=== PATIENT | male | born 1945 | race Caucasian/White ===

== ENCOUNTER 2024-11-25 08:25 | Outpatient (CLI) | payer BC, SELFPAY | END 2024-11-25 08:26 | disposition home or self-care (01) | LOC: INJ CL 08:27 | PROVIDERS: PCP Internal Medicine; Visit Provider Family Medicine | DX: M54.16 Radiculopathy, lumbar region (principal); M51.369 Other intervertebral disc degeneration, lumbar region without mention of lumbar back pain or lower extremity pain | CPT/HCPCS: 62323; J0702; Q9966 ==

== ENCOUNTER 2025-01-21 15:27 | Emergency (ER) | payer BC, SELFPAY ==
[2025-01-21] VITALS (26 sets, daily range): BP systolic 99–125; BP diastolic 60–73; PULSE 62–66; RESP 11–42; TEMP 36.1; O2SAT 90–97; BMI 28.7
--- NOTE | 2025-01-21 16:09 | ED.GENADULT ---
HPI - General Adult General Date Seen: 01/21/25 Chief complaint: Dizziness/Vertigo Stated complaint: Fall Time Seen by Provider: 01/21/25 15:31 History of Present Illness HPI narrative: 79 yo M with a complex presentation here to the ER. He was apparently brought to the ER today by ambulance after he had a episode where he got dizzy and fell at his doctor's office in [place] today. History from the patient is a little bit limited and confusing. He does have a history of Parkinson's and knows that he is due for his carbidopa/levodopa at 4:00 p.m. he does not know his dose of medication but knows that he normally takes 2 pills per dose. In his [place] medical record I see that he is on carbidopa/levodopa 25/100 mg 2 tablets 4 times daily.. He also is able to tell me that he gets episodes where he gets ?a rhodes of blood? to his head and feels like his head is going to pop off. It sounds like this is been happening fairly often for the past couple of months. He is also able to tell me that he just had a workup through Cardiology at [facility] for his are. He apparently had a CT scan, and angiogram, and echocardiogram. He may have had a leaky or a narrow valve. It sounds like his orange peel operator were talking about replacing it over a wire (TAVR? ) But then decided to manage him with medications. He knows that he takes 20 medications in the morning and 15 in the evening. He is not sure what his new meds are. He lives in [place] but it sounds like his regular doctor referred him to a orange peel operator and circular head saw operator in [place]. It sounds like he has COPD. He is able to tell me that he is normally on oxygen. Not home any L he is on. He says he was at the doctor's office and [place] today when he lost his balance and fell. He does fall occasionally, a couple of times per year. Today's episode was associated with 1 of the times when the blood rashes to his head. He says he thinks his doctors wanted him to cut down on his lisinopril blood pressure medication because it is too low. He says his doctor sent him to the ER today because they were concerned that he may have hit his head when he fell. He says he thinks he probably did not hit his head. EMS brought him here from a [facility] clinic. He was apparently holding his walker and went to sit down but missed the chair. Apparently blood pressure was low per EMS. Patient was complaining of head spinning. Past medical history according to his [facility] care link chart include Essential hypertension- amlodipine 5 mg daily, lisinopril 10 mg daily, propranolol 120 mg long-acting Paroxysmal atrial fibrillation- apixaban Chronic diastolic CHF-torsemide 20 mg q.h.s. History of PE-apixaban Left bundle branch block Aortic stenosis Rheumatic fever Mixed hyperlipidemia Hypothyroidism-levothyroxine Type 2 diabetes-pregabalin Sensorineural hearing loss Blepharospasm GERD History of duodenal ulcer Restless leg syndrome-melatonin, mirtazapine Sleep apnea BPH-finasteride Parkinson's disease-carbidopa/levodopa, [place] Depression/anxiety-venlafaxine COPD-albuterol/ipratropium, Breo Ellipta Former Smoker Asthma According to notes from his cardiology visit today, Dr Vernell Suarez is a 79 y.o. male with former smoker, with a PMH of aortic stenosis, rheumatic fever, chronic HFpEF, pAfib, LBBB, HTN, HLD, Parkinson's, COPD, chronic respiratory failure (on 2L NC at baseline), hypothyroidism. He was charged from hospital January 09, 2025 after angiogram demonstrating moderate not flow-limiting LAD disease, 80% distal LAD disease, moderate aortic valve disease with a mean gradient of 28 and a valve area of 1.31 based on cath. He was evaluated by the structural heart team. It was felt he was not having anginal symptoms. It was also felt that he had moderate aortic stenosis and did not have an indication for valve management. They recommend follow-up in a year. He was then seen in the emergency room January 12, 2025. His reported that he looked pale at the time. He has generalized weakness. It was recommend he have a stat cardiology visit. His troponins have remained flat over the last year. They range between 16 and 28. His proBNP was actually reduced on his ER visit from prior. On January 05 it was 650 then it was down to 501. ? Paroxysmal atrial fibrillation, low burden, recently changed to Eliquis. Aortic stenosis HFpEF on daily diuretic Chronic unspecified lung disease HTN Former tobacco use, < 10 year pack history, no use in 50 years ? ? History of Present Illness The patient presents for evaluation of hypotension, lightheadedness, and dyspnea. Recently seen in the ER for chest pain and dyspnea. Breathing improved with inhaler. Discharged but returned due to weakness and dyspnea. No nebulizer, no circular head saw operator consult. No chest pain during ER visit, but reported dyspnea. Currently no chest pain, pressure, or heaviness; reports lightheadedness and weakness. Dyspnea on exertion, cannot recall last comfortable breathing. No increased swelling since hospital stay. On diuretic but did not take today. On Eliquis, previously on warfarin. No aspirin, on fish oil for triglycerides. On 2 L of oxygen. Consulted Dr. Chung in [place] at 10:45 AM today, reported dizziness, lightheadedness, and falls. Lisinopril dosage reduced. Fell in lobby today due to leg weakness, no loss of consciousness. Currently lightheaded and weak. On 8 medications daily. He hit his head and is on Eliquis. Blood pressure remains subone 100 he remains lightheaded and dizzy in the office. Has Parkinson's disease, no autonomic dysfunction discussion with neurologist. Took Sinemet at 1:[address] Blancas prescribes Sinemet, considering switch due to Dr. Blancas's relocation. 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 Assessment & Plan 1. Hypotension: - Discontinue amlodipine as this likely worsens his edema he has no angina and has no cardioprotection - Reduce lisinopril dosage. - Follow-up back with Dr. Cabrera for aortic valve evaluation. - Monitor BP closely. - Continue pulmonary medications. - Recommend head CT due to recent fall and head injury while on Eliquis. - Discontinue fish oil. -Due to his worsening lightheadedness and dizziness I did speak with Dr. Chung will plan on sending the patient to the emergency room. As he continued to have symptoms I recommended that he go to the ER via ambulance. The family would like him to go to the emergency room in [facility]. Again him not sure that his hypotension has anything to do with his heart as his most recent echocardiogram does show a preserved ejection fraction. He very well may need to transfer back to [facility] if we think this is valvular in nature. Otherwise I have set him up with follow-up with Dr. Cabrera who saw him in the hospital for both his coronary artery disease and aortic stenosis. 2. Lightheadedness and dizziness: - Seek immediate medical attention if symptoms persist or worsen. 3. Dyspnea: - Continue inhaler PRN. - Follow up with circular head saw operator for COPD management. 4. 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 5. Head injury: - Recommend head CT to rule out intracranial bleeding emergently as he is on Eliquis Related Data Home Medications ?Medication ?Instructions ?Recorded ?Confirmed albuterol sulfate 2.5 mg/3 mL 2.5 mg Q4H PRN dyspnea 01/21/25 (0.083 %) solution for nebulization amantadine HCl 100 mg capsule 200 mg PO BID 01/21/25 01/21/25 amlodipine 5 mg tablet 5 mg PO DAILY 01/21/25 01/21/25 apixaban 5 mg tablet (Eliquis) 5 mg PO BID 01/21/25 01/21/25 buspirone 30 mg tablet 30 mg PO BID 01/21/25 01/21/25 carbidopa 25 mg-levodopa 100 mg tab PO 01/21/25 tablet clonazepam 0.5 mg tablet 0.25 mg PO QPM 01/21/25 01/21/25 fluticasone furoate 200 1 ea inhalation DAILY 01/21/25 01/21/25 mcg-vilanterol 25 mcg/dose inhalation powder fluticasone propionate 50 2 spray intranasal DAILY 01/21/25 01/21/25 mcg/actuation nasal spray,suspension ipratropium 0.5 mg-albuterol 3 mg 3 ml inhalation 3XD 01/21/25 01/21/25 (2.5 mg base)/3 mL nebulization soln isosorbide mononitrate 30 mg 30 mg PO DAILY 01/21/25 01/21/25 tablet,extended release 24 hr levothyroxine 100 mcg tablet 100 mcg PO DAILY 01/21/25 01/21/25 lisinopril 10 mg tablet 10 mg PO DAILY 01/21/25 01/21/25 lisinopril 20 mg tablet 20 mg PO DAILY 01/21/25 01/21/25 methocarbamol 500 mg tablet 500 mg PO Q8H PRN muscle spasm 01/21/25 01/21/25 mirtazapine 30 mg tablet 30 mg PO QPM 01/21/25 01/21/25 pregabalin 150 mg capsule 150 mg PO BID 01/21/25 01/21/25 propranolol 120 mg capsule,24 120 mg PO DAILY 01/21/25 01/21/25 hr,extended release rosuvastatin 20 mg tablet 20 mg PO QPM 01/21/25 01/21/25 tamsulosin 0.4 mg capsule 0.4 mg PO DAILY 01/21/25 01/21/25 torsemide 20 mg tablet 20 mg PO DAILY 01/21/25 01/21/25 tramadol 50 mg tablet 50 mg PO Q6H PRN pain 01/21/25 01/21/25 venlafaxine 75 mg capsule,extended 225 mg PO DAILY 01/21/25 01/21/25 release 24 hr Allergies Allergy/AdvReac Type Severity Reaction Status Date / Time aspirin Allergy Unknown Verified 01/21/25 16:35 verapamil Allergy Unknown Verified 01/21/25 16:35 PFSH PFSH Social History Smoking Status: Never smoker Do you use any of these nicotine containing products: None How often do you have a drink containing alcohol: never AUDIT-C Alcohol total score: 0 Non-prescribed substance use: denies use Exam Narrative: Exam Narrative: Constitutional: Appears well-developed and well-nourished. Alert. Conversant but somewhat poor historian. There is some much detail for him to give that he has a hard time sorting through in chronological order. He is not really able to describe the exact fall that led him to be sent to the ER today.. Non toxic. HENT: Head: Atraumatic. No depressed skull fracture, Raccoon Eyes, Vazquez's sign, or hemotympanum. Face normal. TMs normal Nose: Nose normal. Mouth/Throat: Oral mucosa is clear and moist. no trismus. Pharynx normal. Tonsils symmetric. No tonsillar enlargement, erythema, or exudate. Eyes: Conjunctivae normal. EOM normal. Pupils equal, round, and reactive to light. No scleral icterus. Neck: Normal range of motion. Neck supple. No tracheal deviation present. No definite C-spine step-off or tenderness. However, cannot be cleared by clinical criteria Cardiovascular: Normal rate, regular rhythm. No gallop. No friction rub. Systolic murmur heard. Symmetric radial artery pulses Pulmonary/Chest: Effort normal. No stridor. No respiratory distress. No wheezes. Scares bibasilar rales. No rhonchi . No tenderness. Abdominal: Soft. Bowel sounds normal. No distension. No mass. No tenderness. No rebound. No guarding. Musculoskeletal: No T or L-spine tenderness. Pelvis stable. RUE: Normal range of motion. No tenderness. No deformity LUE: Normal range of motion. No tenderness. No deformity RLE: Normal range of motion. No edema. No tenderness. No deformity LLE: Normal range of motion. No edema. No tenderness. No deformity Neurological: Alert and oriented to person, place, and time. Normal strength. CN II-VII intact. No sensory deficit. GCS eye subscore is 4. GCS verbal subscore is 5. GCS motor subscore is 6. Normal coordination . After receiving Sinemet is able to ambulate using a walker. Gait is fairly stable. Skin: Skin is warm and dry. No rash noted. No pallor. Normal capillary refill. Psychiatric: Normal mood. Normal affect. Const: Vital Signs, click to edit/add: Vital Signs - 24 hr 01/21/25 15:33 01/21/25 16:02 01/21/25 16:15 Temperature 96.9 F L Pulse Rate [Pulse Oximeter] 66 Respiratory Rate 18 25 H 18 Blood Pressure [Le ft Upper Arm] 100/68 Pulse Oximetry 93 91 93 Oxygen Delivery Me thod Nasal Cannula Oxygen Flow Rate 2 01/21/25 16:22 01/21/25 16:23 01/21/25 16:30 Temperature Pulse Rate [Pulse Oximeter] Respiratory Rate 16 19 Blood Pressure [Le ft Upper Arm] 99/62 Pulse Oximetry 91 92 Oxygen Delivery Me thod Oxygen Flow Rate 01/21/25 16:53 01/21/25 16:54 01/21/25 17:00 Temperature Pulse Rate [Pulse Oximeter] Respiratory Rate 15 15 17 Blood Pressure [Le ft Upper Arm] Pulse Oximetry 93 92 90 Oxygen Delivery Me thod Oxygen Flow Rate 01/21/25 17:07 01/21/25 17:08 01/21/25 17:15 Temperature Pulse Rate [Pulse Oximeter] 62 Respiratory Rate 16 14 18 Blood Pressure [Le ft Upper Arm] 113/73 Pulse Oximetry 94 94 Oxygen Delivery Me thod Nasal Cannula Oxygen Flow Rate 2 01/21/25 17:17 01/21/25 17:30 01/21/25 17:32 Temperature Pulse Rate [Pulse Oximeter] Respiratory Rate 19 42 H 17 Blood Pressure [Le ft Upper Arm] Pulse Oximetry 96 97 96 Oxygen Delivery Me thod Oxygen Flow Rate 01/21/25 17:45 01/21/25 18:00 01/21/25 18:02 Temperature Pulse Rate [Pulse Oximeter] Respiratory Rate 33 H 16 14 Blood Pressure [Le ft Upper Arm] Pulse Oximetry 92 92 91 Oxygen Delivery Me thod Oxygen Flow Rate 01/21/25 18:15 01/21/25 18:15 01/21/25 18:17 Temperature Pulse Rate [Pulse Oximeter] Respiratory Rate 17 15 Blood Pressure [Le ft Upper Arm] 109/65 Pulse Oximetry 92 90 Oxygen Delivery Me thod Oxygen Flow Rate 01/21/25 18:30 01/21/25 18:30 01/21/25 18:32 Temperature Pulse Rate [Pulse Oximeter] Respiratory Rate 16 17 Blood Pressure [Le ft Upper Arm] 113/68 Pulse Oximetry 94 93 Oxygen Delivery Me thod Oxygen Flow Rate 01/21/25 18:45 01/21/25 18:50 01/21/25 19:00 Temperature Pulse Rate [Pulse Oximeter] Respiratory Rate 15 17 11 L Blood Pressure [Le ft Upper Arm] Pulse Oximetry 90 90 90 Oxygen Delivery Me thod Oxygen Flow Rate 01/21/25 19:00 01/21/25 19:03 Temperature Pulse Rate [Pulse Oximeter] Respiratory Rate 18 Blood Pressure [Le ft Upper Arm] 125/60 Pulse Oximetry 90 Oxygen Delivery Me thod Oxygen Flow Rate Course Vital Signs Vital signs: Initial Vital Signs Temperature 96.9 F L 01/21/25 15:33 Temperature Source Temporal Artery Scan 01/21/25 15:33 Pulse Rate 66 01/21/25 15:33 Respiratory Rate 18 01/21/25 15:33 Blood Pressure 100/68 01/21/25 15:33 Blood Pressure Mean 78 01/21/25 15:33 Blood Pressure Position Sitting 01/21/25 15:33 Pulse Oximetry 93 01/21/25 15:33 Oxygen Delivery Method Nasal Cannula 01/21/25 15:33 Oxygen Flow Rate 2 01/21/25 15:33 Vital Signs Temperature 96.9 F L 01/21/25 15:33 Pulse Rate 66 01/21/25 15:33 Respiratory Rate 18 01/21/25 15:33 Blood Pressure 100/68 01/21/25 15:33 Pulse Oximetry 93 01/21/25 15:33 Oxygen Delivery Method Nasal Cannula 01/21/25 15:33 Oxygen Flow Rate 2 01/21/25 15:33 Temperature 96.9 F L 01/21/25 15:33 Pulse Rate 62 01/21/25 17:07 Respiratory Rate 18 01/21/25 19:03 Blood Pressure 125/60 01/21/25 19:00 Pulse Oximetry 90 01/21/25 19:03 Oxygen Delivery Method Nasal Cannula 01/21/25 17:07 Oxygen Flow Rate 2 01/21/25 17:07 Medications Administered Medications: Discontinued Medications Generic Name Dose Route Start Last Admin Trade Name Freq PRN Reason Stop Dose Admin Carbidopa/Levodopa 2 tab 01/21/25 16:12 01/21/25 17:04 Carbidopa-Levodopa 25-100 Tablet PO 01/21/25 16:13 2 tab ONCE ONE Administration Medical Decision Making MDM Narrative Medical decision making narrative: Pleasant 79-year-old gentleman with a complex presentation here to the ER. He was actually sent to the ER today by EMS because he had a fall in his Cardiology office waiting room. Initially was unclear whether not this was a syncopal event or mechanical fall but according to the orange peel operator notes it sounds like it was mechanical. They described that he was sitting back in a chair and missed the chair and fell back on the floor and hit his head. In terms of evaluation for injuries after the fall workup is reassuring. CT scan head and C-spine are normal. Chest x-ray showed no sign of broken ribs. He has no other complaints of pain such as help over shoulder or wrist pain or hip pain. No evidence for other traumatic injury or internal bleeding. When I discussed the patient's HPI he is primarily concerned because he has been having episodes where he gets blood rushing to his head or pulsing in his head that have been happening off and on for the past several weeks. It sounds like he has had fairly extensive workup with his PCP and his orange peel operator. He has actually already had coronary angiogram, echo and was found to have moderate aortic stenosis not requiring immediate TAVR and noncritical coronary artery disease for which they are not recommending any immediate stenting. Workup here in the ER shows an EKG with sinus rhythm and first-degree AV block. Troponin is normal. BNP is elevated at 22 30 but chest x-ray is clear. At this point no evidence for active CHF. He does have a white count of 14 of unclear etiology. He does not have any sign of pneumonia on chest x-ray. Urinalysis negative. No abdominal pain to suggest intra-abdominal infection. No evidence for skin infection on his clinical exam. I do not have any recent baseline labs in my system for comparison. At this point no clear evidence for infection or sepsis. He is hemodynamically stable and blood sugar pressure has been normal throughout his ER visit. He and his are eager to get home because he spent all day at various doctor visits, 1st with his PCP and then with his orange peel operator and then was sent here. Hemoglobin is reassuring at 13.9. No signs of any active bleeding. His orange peel operator and his PCP have recommended that he cut back on his blood pressure medications so I advised him to continue to make that change and follow up with his PCP for recheck. Lab Data Labs: Lab Results 01/21/25 01/21/25 Range/Units 17:12 17:40 WBC 14.71 H (4.50-11.00) K/uL RBC 4.38 (4.30-5.90) m/uL Hgb 13.9 (13.5-17.5) gm/dL Hct 42.2 (37.0-53.0) % MCV 96 (80-100) fL MCH 32 (26-34) pg MCHC 33 (32-36) gm/dL RDW Coeff of Stefani 13.0 (11.5-15.5) % Plt Count 188 (140-440) K/uL Neut % (Auto) 74.5 H (42.0-72.0) % Lymph % (Auto) 16.7 L (20-44) % [place] % (Auto) 7.8 (0.0-11.0) % Eos % (Auto) 0.5 (0.0-7.0) % Baso % (Auto) 0.2 (0.0-3.0) % Neut # (Auto) 11.00 H (1.7-7.0) K/uL Lymph # (Auto) 2.50 (0.90-2.90) K/uL [place] # (Auto) 1.10 H (0.00-0.90) K/UL Eos # (Auto) 0.10 (0.00-0.50) K/uL Baso # (Auto) 0.00 (0.00-0.30) K/uL Abs Immat Gran (auto) 0.00 (0.00-0.30) K/uL Imm/Tot Granulo (auto) 0.3 % Sodium 134 L (135-149) mmol/L Potassium 4.2 (3.6-5.1) mmol/L Chloride 96 (96-114) mmol/L Carbon Dioxide 30 (20-32) mmol/L Anion Gap 8 (7-15) mEq/L BUN 15 (7-30) mg/dL Creatinine 1.2 (0.5-1.5) mg/dL Estimated Creat Clear 52.38 Estimated GFR 62 ml/min Glucose 120 H (60-115) mg/dL Lactate 1.0 (0.5-1.9) mmol/L Calcium 8.8 (8.4-10.6) mg/dL Troponin I < 0.01 (0.01-0.04) ng/mL NT-Pro-B Natriuret Pep 2230 H (See Note) pg/mL Urine Color [place] A (Yellow) Urine Appearance Clear (Clear) Urine pH 5.5 (5.0-8.5) Ur Specific Felt >= 1.030 (1.000-1.030) Urine Protein 1+ A (Negative) Urine Glucose (UA) Negative (Negative) Urine Ketones 1+ A (Negative) Urine Blood Negative (Negative) Urine Nitrite Negative (Negative) Urine Bilirubin 1+ A (Negative) Urine Urobilinogen 0.2 (0.2-1.0) Ur Leukocyte Esterase Negative (Negative) Urine RBC 0-2 (0-2) Urine WBC 0-2 (0-5) Ur Squamous Epith Cells None (None-Few) Urine Bacteria None (None) Hyaline Casts Many A (None-Few) Imaging Data CT scan - head: Attestation: I have reviewed the pertinent imaging results. Radiologist's impression: IMPRESSION: 1. No acute intracranial hemorrhage. 2. 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 CT C spine: Attestation: I have reviewed the pertinent imaging results. Radiologist's impression: IMPRESSION: 1. No evident acute displaced fracture. 2. Degenerative change of the cervical spine. Chest x-ray: Attestation: I have reviewed the pertinent imaging results. Radiologist's impression: IMPRESSION: No acute cardiopulmonary process or acute traumatic injury. ECG Data Attestation: I personally reviewed and interpreted this ECG as follows: Interpretation: Normal sinus rhythm with first-degree AV block Rate: 62 NV: 234 QRS axis: Left axis deviation. Left bundle branch block pattern. ST segment/T wave: No ST segment elevation or depression. QTc: 454 Discharge Plan Discharge Clinical Impression: Fall Patient Disposition: Home, Self-Care Condition: Stable Instructions: Weakness (ED) Additional Instructions: As we discussed, so far we do not see any signs of any serious injuries from your fall today. It is unclear why your blood pressure has been dropping low lately or wire getting these episodes where blood rushes to your head. It is very important for you to keep working this up with your regular doctor. As we discussed call your regular doctor for a follow-up appointment within the next 1-7 days. Also fall your regular doctors advice and cut back on your dose of lisinopril (as per Dr. Chnug.) If you have any concerns such as more falls, weakness, trouble breathing, chest pain, or any other problems, return to the ER right away. Prescriptions: No Action methocarbamol 500 mg tablet 500 mg PO Q8H PRN (Reason: muscle spasm) venlafaxine 75 mg capsule,extended release 24hr 225 mg PO DAILY ipratropium-albuterol 0.5 mg-3 mg(2.5 mg base)/3 mL solution for nebulization 3 ml INHALATION 3XD torsemide 20 mg tablet 20 mg PO DAILY albuterol sulfate 2.5 mg /3 mL (0.083 %) solution for nebulization 2.5 mg Q4H PRN (Reason: dyspnea) lisinopril 20 mg tablet 20 mg PO DAILY isosorbide mononitrate 30 mg tablet extended release 24 hr 30 mg PO DAILY clonazepam 0.5 mg tablet 0.25 mg PO QPM Patient Comments: No longer taking amlodipine 5 mg tablet 5 mg PO DAILY tramadol 50 mg tablet 50 mg PO Q6H PRN (Reason: pain) amantadine HCl 100 mg capsule 200 mg PO BID levothyroxine 100 mcg tablet 100 mcg PO DAILY tamsulosin 0.4 mg capsule 0.4 mg PO DAILY mirtazapine 30 mg tablet 30 mg PO QPM buspirone 30 mg tablet 30 mg PO BID lisinopril 10 mg tablet 10 mg PO DAILY propranolol 120 mg capsule,extended release 24 hr 120 mg PO DAILY carbidopa-levodopa 25-100 mg tablet PO fluticasone propionate 50 mcg/actuation spray,suspension 2 spray INTRANASAL DAILY rosuvastatin 20 mg tablet 20 mg PO QPM pregabalin 150 mg capsule 150 mg PO BID Eliquis 5 mg tablet 5 mg PO BID fluticasone furoate-vilanterol 200-25 mcg/dose blister with device 1 ea inhalation DAILY Follow Up/Referrals: Mikala Chung MD [Primary Care Provider, Internal Medicine] Stand Alone Forms: [facility] Info Instructions
--- NOTE | 2025-01-21 16:22 | CRLHL7_ITS ---
For Patients: As a result of the Century Cures Act, medical imaging exams and procedure reports are released immediately into your electronic medical record. You may view this report before your referring provider. If you have questions, please contact your health care provider. INDICATION: Fall with injury on anticoagulation COMPARISON: None. TECHNIQUE: CT of the cervical spine without contrast. FINDINGS: Diffuse osseous demineralization. Alignment: Mild straightening of the cervical lordosis. Mild multilevel cervical listhesis. Vertebra: No evident acute displaced fracture or traumatic malalignment. Cervical vertebral body height is grossly preserved. There are multilevel degenerative changes characterized by disc height loss, osteophytosis, facet hypertrophy, and end plate degenerative irregularity. No high-grade osseous spinal canal stenosis. There is [id number] multilevel osseous neural foraminal narrowing. Paraspinal muscles: Unremarkable noncontrast CT appearance. Additional findings: Severe arthropathy of the [id number]-right temporomandibular joint. There are atherosclerotic vascular calcifications. IMPRESSION: 1. No evident acute displaced fracture. 2. Degenerative change of the cervical spine. Please note that all CT scans at this facility use dose modulation, iterative reconstruction, and/or weight-based dosing when appropriate to reduce radiation dose to as low as reasonably achievable. Dictated by Vin Baker MD @ 01/21/2025 5:12:43 PM (Electronically Signed)
--- NOTE | 2025-01-21 16:22 | CRLHL7_ITS ---
For Patients: As a result of the Cures Act, medical imaging exams and procedure reports are released immediately into your electronic medical record. You may view this report before your referring provider. If you have questions, please contact your health care provider. INDICATION: : Fall COMPARISON: None TECHNIQUE: Two view(s) of the chest FINDINGS: The cardiomediastinal silhouette is within normal limits. Low lung volumes with some blunting of the left costophrenic angle. There is no focal airspace consolidation, pleural effusion, or pneumothorax. No displaced fractures. IMPRESSION: No acute cardiopulmonary process or acute traumatic injury. Dictated by Cody Henry MD @ 01/21/2025 5:07:35 PM (Electronically Signed)
--- NOTE | 2025-01-21 16:22 | CRLHL7_ITS ---
For Patients: As a result of the Century Cures Act, medical imaging exams and procedure reports are released immediately into your electronic medical record. You may view this report before your referring provider. If you have questions, please contact your health care provider. INDICATION: Fall, anticoagulated. TECHNIQUE: Noncontrast CT of the head with multiplanar reconstruction utilizing bone and soft tissue algorithms. COMPARISON: None available. FINDINGS: No acute intracranial hemorrhage. 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 The ventricles are normal in size. No abnormal extra-axial fluid collection is identified. No calvarial fracture is identified. The globes are symmetric with evidence of prior cataract surgery. There is mild mucosal thickening within the anterior ethmoid air cells. IMPRESSION: 1. No acute intracranial hemorrhage. 2. 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 Please note that all CT scans at this facility use dose modulation, iterative reconstruction, and/or weight-based dosing when appropriate to reduce radiation dose to as low as reasonably achievable. Dictated by Alexandre Haas MD @ 01/21/2025 5:13:38 PM (Electronically Signed)
--- OUTSIDE RECORDS SUMMARY | 2025-01-21 16:24 | XMS_ITS | Clinical Summary ---
Author Organization [facility] Address [address] , [address] [place] [address] Phone Care Team Providers Care Machining Department Supervisor Name Role Phone Nick Russo MD Unavailable Conditions or Problems Problem Name Problem Code Onset Date Status Entry Date Provider Comment Standard Description Annotate Parkinson's disease without dyskinesia, without mention of fluctuation s 78076687 (SNOMED CT) 10/03 Active 10/03 Nick Russo MD Parkinson's disease Parkinsonis m, unspecified 37775848 (SNOMED CT) 09/10 Active 09/10 Maria A Goss Parkinsonism Lumbar radiculopat hy 192215766 (SNOMED CT) Active Mery Aguilar DNP,[employer],CN P Lumbar radiculopathy Neuropathic pain 632284558 (SNOMED CT) 03/26 Active 03/26 Mery Aguilar DNP,[employer],CN P Neuropathic pain Left median neuropathy 229759436 (SNOMED CT) 08/10 Active 08/10 Nick Russo MD Median neuropathy Abnormal electromyog l[place] 900572234 (SNOMED CT) 08/10 Active 08/10 Nick Russo MD Electromyogram abnormal Weakness 54064773 (SNOMED CT) 08/03 Active 08/03 Nick Russo MD Asthenia Muscle pain 39308209 (SNOMED CT) 08/03 Active 08/03 Nick Russo MD Muscle pain Gait imbalance 24504044 (SNOMED CT) 04/12 Active 04/12 Mery Aguilar DNP,[employer],CN P Abnormal gait Prediabetes 478168916 (SNOMED CT) 10/09 Active 10/09 Nick Russo MD Prediabetes B12 deficiency 618080933 ([facility] CT) 09/10 Active 09/10 Nick Russo MD Cobalamin deficiency Parkinsonnir m 88315070 ([facility] CT) 09/10 Inactive 09/10 Nick Russo MD Parkinsonism Leg pain, bilateral 74866072 ([facility] CT) 04/03 Active 04/03 Nick Russo MD Pain in lower limb Shortness of breath 449728974 ([facility] CT) 04/03 Active 04/03 Nick Russo MD Dyspnea Leg weakness, bilateral 050709264 ([facility] CT) 04/03 Active 04/03 Nick Russo MD 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 707907789 ([facility] CT) 04/03 Active 04/03 Nick Russo MD Peripheral nerve disease Medications Medication Instructions Start Date Stop Date Generic Name ND Provider CARBIDOPA-LEVODO PA 25-100 MG TABS Take 2 tablet by mouth four times a day carbidopa-levodop a [id number] Nick Russo MD FUROSEMIDE 40 MG TABS Take 1 tablet by mouth every morning 04/07 furosemide 87704847209 Gabrielle Resendezil PA-C TORSEMIDE 20 MG TABS torsemide 75901411671 Gabriellesaroj Resendezil PA-C CARBIDOPA-LEVODO PA 25-100 MG TABS Take 2 tablet by mouth three times a day 01/02 carbidopa-levodop a 91064808793 Nick Russo MD ROSUVASTATIN CALCIUM 10 MG TABS 03/26 rosuvastatin 62663878408 Mery Aguilar DNP,[employer] CARBIDOPA-LEVODO PA 25-100 MG TABS Take 2 tablet by mouth twice a day 01/02 carbidopa-levodop a 32754472761 Nick Russo MD ACETAMINOPHEN 500 MG TABS Take 1000 mg by mouth every six hours as needed acetaminophen 21373614510 Nick Molina CARBIDOPA-LEVODO PA 25-100 MG TABS 1 by mouth twice a day 01/02 carbidopa-levodop a 70638739449 Mery Aguilar DNP,[employer] VENLAFAXINE HCL ER 150 MG [id number] Take 75 mg by mouth once a day 01/16 venlafaxine 28419879399 Mery Aguilar DNP,[employer] SPIRONOLACTONE 25 MG TABS Take 1 tablet by mouth every morning spironolactone 57702550562 Nick Russo MD FUROSEMIDE 40 MG TABS Take 1 tablet by mouth every morning 04/07 furosemide 41756060019 Mery Aguilar DNP,[employer] MUPIROCIN 2 % OINT Apply to skin twice a day mupirocin 33336425381 Nick Russo MD LISINOPRIL 20 MG TABS Take 1 tablet by mouth twice a day lisinopril 04863641825 Nick Russo MD HYDRALAZINE HCL 50 MG TABS Take 1 tablet by mouth three times a day 01/16 hydralazine 24428829064 Mery Aguilar DNP,[employer] CLONAZEPAM 0.5 MG TABS Take 1 tablet by mouth every night clonazepam 94886010691 Mery Aguilar DNP,[employer] ALBUTEROL SULFATE (2.5 MG/3ML) 0.083% NEBU Use 1 vial every four hours as needed albuterol sulfate 86704755010 Mery Aguilar DNP,[employer] VITAMIN D (ERGOCALCIFEROL) 24294 UNIT CAPS by mouth ergocalciferol (vitamin d2) 95088831548 Nick Russo MD Proventil HFA 90 mcg/actuation HFA aerosol inhaler Inhale 2 puff by mouth every four hours as needed albuterol sulfate 19082626545 Nick Russo MD BREO ELLIPTA 200-25 MCG/ACT AEPB Inhale 1 puff by mouth once a day fluticasone furoate-vilantero l 08446536988 Nick Russo MD VENLAFAXINE HCL ER 75 MG [id number] Take 3 capsule by mouth once a day venlafaxine 30278889621 [facility],[employer] INGREZZA 80 MG CAPS Take 80 mg by mouth once a day 01/16 valbenazine 01737608451 [facility] D[facility],[employer] OMEPRAZOLE 20 MG CPDR Take 1 capsule by mouth once a day 01/16 omeprazole 15750889231 Mery Aguilar DNP,[employer] PREGABALIN 150 MG CAPS Take 1 capsule by mouth twice a day pregabalin 36747040948 Mery Aguilar DNP,[employer] PROPRANOLOL HCL ER 120 MG [id number] capsule by mouth propranolol 03250329807 Nick Russo MD MIRTAZAPINE 30 MG TABS Take 1 tablet by mouth every night mirtazapine 01375166646 Nick Russo MD LEVOTHYROXINE SODIUM 100 MCG TABS by mouth levothyroxine 31972095151 Nick Russo MD CELECOXIB 200 MG CAPS Take 1 capsule by mouth once a day 01/16 celecoxib 12176894882 Mery Aguilar DNP,[employer] AMLODIPINE BESYLATE 10 MG TABS Take 1 tablet by mouth once a day amlodipine 23551571337 Nick Russo MD AUSTEDO 12 MG TABS deutetrabenazine 23011707677 Mery Aguilar DNP,[employer] ROSUVASTATIN CALCIUM 10 MG TABS 01/02 rosuvastatin 79201837821 Mery Aguilar DNP,[employer] BUSPIRONE HCL 15 MG TABS buspirone 78816101674 Mery Aguilar DNP,[employer] WARFARIN SODIUM 2 MG TABS warfarin 64262008222 Mery Aguilar DNP,[employer] CARBIDOPA-LEVODO PA 25-100 MG TABS 1 PILL AT 9AM, 1 PILL AT 2PM AND 1 PILL AT 7PM 01/02 CARBIDOPA-LEVODOP A [id number] Mery Aguilar DNP,[employer] CARBIDOPA-LEVODO PA ER 25-100 MG CR-TABS 1 PILL AT 9AM, 1 PILL AT 2PM AND 1 PILL AT 7PM 01/03 CARBIDOPA-LEVODOP A [id number] Mery Aguilar DNP, APRN,[employer] CARBIDOPA-LEVODO PA ER 25-100 MG CR-TABS 1 PILL AT 9AM, 1 PILL AT 2PM AND 1 PILL AT 7PM 11/11 CARBIDOPA-LEVODOP A 14988205174 Mery Aguilar DNP,[employer] CARBIDOPA-LEVODO PA 25-100 MG TABS 1/2 PILL AT 8AM, 1PM AND 6PM WITHOUT FOOD FOR 2 WEEKS, THEN INCREASE TO 1 PILL THREE TIMES DAILY AT SAME TIMES 01/02 CARBIDOPA-LEVODOP A 04463016062 Nick Russo MD PREGABALIN 150 MG CAPS TAKE 1 CAPSULE BY MOUTH TWICE DAILY 01/16 PREGABALIN 52222663809 Mery Aguilar DNP,BRETT,[employer] FUROSEMIDE 40 MG TABS TAKE 1 TABLET BY MOUTH ONCE DAILY IN THE MORNING 01/16 FUROSEMIDE 30376529182 Mery Aguilar DNP,[employer] CLONAZEPAM 0.5 MG TABS TAKE 1 TABLET BY MOUTH AT BEDTIME 01/02 CLONAZEPAM 04291261483 Mery Aguilar DNP,BRETT,[employer] CELECOXIB 200 MG CAPS TAKE 1 CAPSULE BY MOUTH ONCE DAILY WITH A MEAL 09/13 CELECOXIB 88176226569 Mery Aguilar DNP,[employer]N ALBUTEROL SULFATE (2.5 MG/3ML) 0.083% NEBU USE 1 VIAL IN NEBULIZER EVERY 4 HOURS NEEDED FOR SHORTNESS OF BREATH OR WHEEZING 01/16 ALBUTEROL SULFATE 07116518558 Mery Aguilar DNP,[employer] GABAPENTIN 300 MG CAPS Take 3 capsules by mouth 3 times daily. 04/12 gabapentin (NEURONTIN) 300 mg capsule 12942612833 Mery Aguilar DNP, APRN,[employer] PROPRANOLOL HCL ER 120 MG [id number] 01/16 PROPRANOLOL HCL 15312346140 Nick Russo MD VENLAFAXINE HCL ER 75 MG [id number] Take 1 capsule by mouth once daily with a meal. Take with 150 mg cap for total of 225 mg daily. 01/16 venlafaxine (EFFEXOR XR) 75 mg cp24 Extended-Release capsule 05082256936 System Maintenance VENLAFAXINE HCL ER 150 MG [id number] Take with 75 mg for total daily dose of 225 mg 01/16 venlafaxine (EFFEXOR XR) 150 mg Extended-Release capsule 39816409864 System Maintenance INGREZZA 80 MG CAPS Take 80 mg by mouth once daily. 01/16 valbenazine 80 mg cap 95770819234 System Maintenance SPIRONOLACTONE 25 MG TABS Take 1 tablet by mouth every morning. 01/16 spironolactone (ALDACTONE) 25 mg tablet 40063844163 System Maintenance OMEPRAZOLE 20 MG CPDR TAKE ONE CAPSULE BY MOUTH ONCE DAILY BEFORE A MEAL 01/02 omeprazole (PRILOSEC) 20 mg Delayed-Release capsule 62690290528 System Maintenance MUPIROCIN 2 % OINT Apply topically to affected area(s) 2 times daily for 5 days. 01/16 mupirocin 2% topical (BACTROBAN OINTMENT) ointment 43167541839 System Maintenance MIRTAZAPINE 30 MG TABS Take 1 tablet by mouth at bedtime. 01/16 mirtazapine (REMERON) 30 mg tablet 92354247765 System Maintenance LISINOPRIL 20 MG TABS Take 1 tablet by mouth 2 times daily. 08/11 lisinopril (PRINIVIL; ZESTRIL) 20 mg tablet 44730706882 System Maintenance LEVOTHYROXINE SODIUM 100 MCG TABS null 01/16 levothyroxine (SYNTHROID) 100 mcg tablet 50224651538 System Maintenance HYDRALAZINE HCL 50 MG TABS TAKE 1 TABLET BY MOUTH THREE TIMES DAILY 01/16 hydrALAZINE (APRESOLINE TABLET) 50 mg tablet 86780996772 System Maintenance GABAPENTIN 300 MG CAPS Take 3 capsules by mouth 3 times daily. 01/02 gabapentin (NEURONTIN) 300 mg capsule 94554255424 System Maintenance ERGOCALCIFEROL 1.25 MG (63711 UT) CAPS null 01/16 ergocalciferol (VITAMIN D2) 50,000 unit capsule 50969906177 System Maintenance AMLODIPINE BESYLATE 10 MG TABS TAKE ONE TABLET BY MOUTH ONCE DAILY 01/02 amLODIPine (NORVASC) 10 mg tablet 03621104895 System Maintenance albuterol HFA 90 mcg/actuation inhaler Inhale 2 Puffs by mouth every 4 hours if needed (for shortness of breath). 01/16 albuterol HFA 90 mcg/actuation inhaler 53840145843 System Maintenance ACETAMINOPHEN 500 MG TABS Take 1,000 mg by mouth every 6 hours if needed. for pain. Max acetaminophen dose: 4000mg in 24 hrs. 01/16 acetaminophen (TYLENOL EXTRA STRGTH) 500 mg tablet 07712954403 System Maintenance BREO ELLIPTA 200-25 MCG/ACT AEPB INHALE ONE PUFF BY MOUTH ONCE DAILY 08/02 BREO ELLIPTA 200mcg/25mcg inhaler 95307745226 System Maintenance Medications Administered No information available. Allergies, Adverse Reactions, Alerts Allergy Name Reaction Description Start Date Severity Statu s Provider VERAPAMIL Cardiac Arrest Severe Active James Russo MD TRIMETHOPRIM Nausea Only Mild Active James Russo MD SULFAMETHOXAZOLE-TRIMETHO PRIM Nausea Only Moderate Active Nick Russo MD SULFAMETHOXAZOLE Nausea Only Mild Active Nick Russo MD SIMVASTATIN Myalgia Mild Active Nick Russo MD NAPROXEN Other - Describe In Comment Field Severe Active Nick Russo MD IBUPROFEN Other - Describe In Comment Field Severe Active Nick Russo MD ASPIRIN Other - Describe In Comment Field Severe Active Nick Russo MD Results Date Name Value Unit Range Flag Description Office Visit: ABNORMAL EMG, PAIN/WEAKNESS IN BLE fax SMOK STATUS former smoker Tobacco smoking status Office Visit: fax PHQ22 Yes Adolescent depression screening assessment PHQ21 Yes Adolescent depression screening assessment Internal Other: Verbal Autho rization/Emergency Contact - OBS VERBAL_EMER DONE Verbal authorization and emergency contact Replaced Document: (P) CREAT INE KINASE, TOTAL, T4, FREE, TSH, ALDOLASE ALDOLASE * U/L Aldolase [En zymatic activity/volume] in Serum or Plasma TSH * u[iU]/mL Thyrotropin [Units/volume] in Serum or Plasma FRT4 * FREE T4 CPK 40 U/L 44-196 L Creatine tricia se [Enzymatic activity/volume] in Serum or Plasma Internal Other: Authorizatio n - OBS [email or web address] Yes Authoriza tion: Release of Information - Authorize [facility] - Payment and Healthcare Operations ROIAUTHOTHER Yes Authoriz ation: Release of Information - Authorize Others/Insurance - Payment and Healthcare Operations HIECONSENT Yes Consent To Release information to the Health Information Exchange (HIE) [email or web address] Yes Authorizat ion: Authorization for [facility] to leave messages, voicemail, send text messages, send emails AUTHRELHCARE Yes Authoriz ation: Release/Retrieval of Information to/from Healthcare Facilities, Pharmacy Benefit Payers and Providers AUTHPRIVPRAC Yes Authoriz ation: Notice of privacy practices AUTHBENEFIT Yes Authoriza tion: Assignment of Benefits and Payment Agreement Office Visit: Office Visit 6 M pt sched fax MEDS REVIEW Done Documenta tion of current medications (procedure) Plan of Care Type Date Detail Appointment 01:30 PM Gabrielle Lamb PA-C, [address], [address], [place], [address], Pending order Follow up TOD Pending order Follow up TOD Pending order Follow up Pending order Patient Instruct ions Pending order Follow up Pending order Instructions for Staff Pending order Patient Instruct ions Pending order Patient Instruct ions Pending order Follow up TOD Pending order Patient Instruct ions Pending order Follow up Pending order Orthopedic Surge ry Referral Pending order Patient Instruct ions Pending order Follow up TOD Pending order Other Referral Pending order Patient Instruct ions Pending order Follow up in cli mile Pending order MRI-Lumbar W/O Pending order EMG left lower e xt Pending order EMG left upper e xt Pending order Patient Instruct ions Pending order Aldolase Pending order CK (Creatine Kin ase) Total Pending order T4 Free Direct Pending order TSH Pending order Obtain outside r ecords Pending order Other Test Pending order Follow up in cli mile Pending order Follow up TOD Pending Order exclud ed from report: Pending order Follow up TOD Pending order Patient Instruct ions Pending order Follow up TOD Pending order Hemoglobin A1C Pending order Patient Instruct ions Pending order Follow up Pending order Driving Evaluati on Pending order Physical Therapy Pending order Driving Evaluati on Pending Order exclud ed from report: Pending order Follow up TOD Pending order Hemoglobin A1C Pending order Patient Instruct ions Pending order Follow up Pending order Patient Instruct ions Pending order Follow up Pending order Aldolase Pending order CK (Creatine Kin ase) Total Pending order T4 Free Direct Pending order TSH Pending order Vitamin B12 Pending order Patient Instruct ions Procedures Code Procedure Name Date Entry Date [facility]-[id number] Documentation of current medicatio ns [facility]-[id number] Documentation of current medicatio ns [facility]-[id number] Documentation of current medicatio ns ORDERS Follow up TOD ORDERS Instructions for Staff 04/07 ORDERS Patient Instructions ORDERS Patient Instructions ORDERS Patient Instructions ORDERS Follow up [facility]-[id number] Documentation of current medicatio ns [facility]-[id number] Orthopedic Surgery Referral ORDERS Patient Instructions ORDERS Follow up TOD [id number] Other Referral ORDERS Patient Instructions [id number] Documentation of current medicatio ns ORDERS Follow up in clinic [id number] MRI-Lumbar W/O CPT-36024 Nerve Conduction 13 or more studies 08/10 CPT-62922 EMG with NCS (5+ muscles) - 2 limbs 08/10 CPT-75804 Thoracic PS (T3-11) ORDERS EMG left upper ext 5 ORDERS EMG left lower ext 5 ORDERS Patient Instructions ORDERS Aldolase ORDERS CK (Creatine Kinase) Total 2 ORDERS T4 Free Direct ORDERS TSH [facility]-[id number] Documentation of current medicatio ns ORDERS Obtain outside records 01/16 ORDERS Follow up in clinic ORDERS Other Test ORDERS Follow up TOD ORDERS Patient Instructions ORDERS Follow up TOD ORDERS Hemoglobin A1C ORDERS Patient Instructions [facility]-[id number] Documentation of current medicatio ns ORDERS Follow up LOINC 21857-3 Fall risk assessment 04/12 ORDERS Follow up TOD ORDERS Physical Therapy ORDERS Driving Evaluation 4 ORDERS Hemoglobin A1C [facility]-[id number] Documentation of current medicatio ns LOINC 83184-2 Fall risk assessment 0 04/12 LOINC 23501-6 Fall risk assessment 0 04/12 LOINC 71018-0 Fall risk assessment 0 04/12 LOINC 74253-9 Fall risk assessment 0 04/12 LOINC 93352-5 Fall risk assessment 0 04/12 LOINC 37691-0 Fall risk assessment 0 04/12 LOINC 95368-5 Fall risk assessment 04/12 ORDERS Patient Instructions ORDERS Follow up [facility]-[id number] Documentation of current medicatio ns ORDERS Patient Instructions ORDERS Follow up [id number] Documentation of current medicatio ns ORDERS Aldolase ORDERS CK (Creatine Kinase) Total 2 ORDERS T4 Free Direct ORDERS TSH ORDERS Vitamin B12 ORDERS Patient Instructions CPT-27794 Nerve Conduction 7-8 studies CPT-41888 EMG with NCS (5+ muscles) - 1 limb 04/03 CPT-8861174 Thoracic PS (T3-11) [facility]-[id number] Documentation of current medicatio ns Vital Signs Date Name Value Unit Description Height 68 [in_us] height E&M BMI (Body Mass Index) 33.42 kg/m2 Bod y Mass Index (Ratio) BP Diastolic 90 mm[Hg] blood pressu re, diastolic BP Systolic 140 mm[Hg] blood pressur e, systolic Heart Rate 78 /min pulse rate Weight Measured 219 [lb_av] weight E& M Weight Measured 219 [lb_av] weight E& M Immunizations No information available. Advance Directives No information available.
--- OUTSIDE RECORDS SUMMARY | 2025-01-21 16:25 | XMS_ITS | Clinical Summary ---
Author Organization [employer] [facility] Address [address] [place] [address] Care Team Providers Care Lumber Inspector Name Role Phone Mikala Chung MD Primary Care Provider [phone] Nick Russo MD Unavailable Sissy Lee MD Unavailable Dirk De Dios PsyD, Unavailable [facility] [place] Unavailable Allergies Active Allergy Reactions Criticality Noted Date Comments Aspirin Other - Describe In Comment Field Medium 07/10/2016 Bowel obstruction Sulfamethoxazole-Trimetho prim Nausea Only Medium 05/15/2018 Ibuprofen Other - Describe In Comment Field Medium 11/04/2017 Causes small bowel adhesions Naproxen Other - Describe In Comment Field Medium 11/04/2017 Causes small bowel adhesions Quetiapine Myalgia Medium 07/11/2019 Parkinsonism Simvastatin Myalgia Low 10/31/2013 Sulfamethoxazole Nausea Only 12/31/2018 Trimethoprim Nausea Only 01/06/2019 Verapamil Cardiac Arrest High 09/25/2006 Medications albuterol HFA 90 mcg/actuation inhalerIndication s:Reactive airway disease, mild intermittent, uncomplicated (HC) Inhale 2 Puffs by mouth every 4 hours if needed. Ventolin HFA 3 Inhaler 3 020 Active acetaminophen (TYLENOL EXTRA STRGTH) 500 mg tablet Take 1,000 mg by mouth 2 times daily. Max acetaminophen dose: 4000mg in 24 hrs. Active artificial tears, peg 400 0.4%-propylene glycol 0.3%, (SYSTANE) ophthalmic Place 1 Drop into both eyes 4 times daily if needed for Dry Eyes. Active oxygen-air delivery systems (HOME OXYGEN)Indication s:Pneumonia of right lung due to infectious organism, unspecified part of lung Oxygen for home use. Liters per minute: 2 per nasal cannula. Frequency of use: Continuous with portable conserving device. Length of need: 99 Months. 1 Each 024 Active polyethylene glycol (MIRALAX; GLYCOLAX) 17 g per packet packetIndications :Impacted stool in intestine (HC),Constipation , unspecified constipation type Mix 17 g in liquid then take by mouth 2 times daily if needed for Constipation. 30 Packet 024 Active omeprazole (PRILOSEC) 40 mg Delayed-Release capsuleIndication s:Gastroesophagea l reflux disease without esophagitis Take 1 Capsule (40 mg) by mouth once daily if needed for Heartburn. 90 Capsule 3 024 Active hydrocortisone 2.5% creamIndications: Seborrheic dermatitis Apply topically to affected area(s) 2 times daily if needed (Skin issue). 28 g 3 024 Active nystatin (MYCOSTATIN) 100,000 unit/gram topical creamIndications: Seborrheic dermatitis APPLY TOPICALLY TO AFFECTED AREA(S) TWICE DAILY NEEDED 30 g 3 024 Active fluticasone (50 mcg per actuation) nasal solution (FLONASE)Indicati ons:Post-nasal drainage Use 2 spray(s) in each nostril once daily 48 g 1 024 Active albuterol 0.083% (2.5 mg/3 mL) neb solutionIndicatio ns:Chronic obstructive pulmonary disease, unspecified COPD type (HC) Inhale 3 mL (2.5 mg) via a nebulizer every 4 hours if needed for Shortness Of Breath. 150 mL 11 024 Active finasteride (PROSCAR) 5 mg tabletIndications :Benign prostatic hyperplasia, unspecified whether lower urinary tract symptoms present Take 1 Tablet (5 mg) by mouth once daily in the morning. 90 Tablet 3 024 Active tamsulosin 0.4 mg capsuleIndication s:Benign prostatic hyperplasia with nocturia Take 1 Capsule (0.4 mg) by mouth once daily after a meal. 90 Capsule 3 024 Active levothyroxine (SYNTHROID) 100 mcg tabletIndications :Acquired hypothyroidism Take 1 Tablet (100 mcg) by mouth once daily. 90 Tablet 3 024 Active propranolol ER (INDERAL LA) 120 mg Cs24 Sustained-Release capsuleIndication s:Essential tremor Take 1 capsule by mouth once daily 90 Capsule 3 024 Active melatonin 5 mg tab tablet Take 7.5 mg by mouth at bedtime. Active amantadine HCL (SYMMETREL) 100 mg capsuleIndication s:Tardive dyskinesia Take 2 capsules by mouth twice daily 360 Capsule 025 Active Austedo 12 mg IR tabletIndications :Tardive dyskinesia TAKE TWO TABLETS BY MOUTH TWICE A DAY 120 Tablet 5 025 Active lidocaine, viscous, 2 % liquidIndications :Stomatitis Swish and spit 15 mL by mouth every 4 hours if needed for Stomatitis. 100 mL 025 Active Breo Ellipta 200-25 mcg/dose inhalation powdererIndicatio ns:Chronic obstructive pulmonary disease, unspecified COPD type (HC) Inhale 1 Puff by mouth once daily. 60 Each 11 025 Active busPIRone 30 mg tabletIndications :Generalized anxiety disorder Take 1 tablet by mouth twice daily 180 Tablet 025 Active torsemide 20 mg tabletIndications :Chronic heart failure with preserved ejection fraction (HC) Take 1 tablet by mouth once daily 90 Tablet 1 025 Active amLODIPine 5 mg tabletIndications :Essential hypertension Take 1 tablet by mouth once daily 90 Tablet 3 025 Active pregabalin 150 mg capsuleIndication s:Neuropathy Take 1 capsule by mouth twice daily 180 Capsule 1 025 Active albuterol-ipratro pium (2.5-0.5 mg) in 3 mL NEBULIZATION solutionIndicatio ns:Acute respiratory failure with hypoxia (HC) Inhale 3 mL via a nebulizer three times daily. 810 mL 3 025 Active venlafaxine 75 mg cp24 Extended-Release capsuleIndication s:Major depressive disorder, recurrent episode, moderate (HC) TAKE 3 CAPSULES BY MOUTH ONCE DAILY WITH A MEAL 270 Capsule 025 Active mirtazapine 30 mg tabletIndications :Major depressive disorder, recurrent episode, moderate (HC) TAKE 1 TABLET BY MOUTH AT BEDTIME 90 Tablet 025 Active traMADoL 50 mg tabletIndications :Primary osteoarthritis involving multiple joints,Other chronic pain Take 1 Tablet (50 mg) by mouth every 6 hours if needed for Pain. Max 1 per day 30 Tablet 025 Active triamcinolone 0.1 % cream Apply topically to affected area(s). APPLY CREAM EXTERNALLY TO AFFECTED AREA TWICE DAILY TO RASH ON ARMS UP TO 2 WEEKS AT A TIME, THEN TAKE 2 WEEKS OFF, REPEAT NEEDED FOR FLARE UPS Active clindamycin 1 % lotion Apply topically to affected area(s). APPLY LOTION TOPICALLY TO AFFECTED AREA OF ENTIRE FACE 1-2 TIMES DAILY Active cyanocobalamin 1,000 mcg/mL injection Inject 1,000 mcg intramuscular every 4 weeks. Active apixaban 5 mg tabletIndications :prevent thromboembolism in chronic atrial fibrillation Take 1 Tablet (5 mg) by mouth two times daily. 180 Tablet 01/10/20 25 12:18 PM CDT 025 Active isosorbide mononitrate 30 mg extended release tablet 24 HourIndications:C oronary artery disease, unspecified vessel or lesion type, unspecified whether angina present, unspecified whether swinomish or transplanted heart Take 1 Tablet (30 mg) by mouth once daily. 90 Tablet 3 01/10/20 25 12:18 PM CDT 025 Active rosuvastatin 20 mg tabletIndications :Coronary artery disease, unspecified vessel or lesion type, unspecified whether angina present, unspecified whether swinomish or transplanted heart Take 1 Tablet (20 mg) by mouth at bedtime. 90 Tablet 01/10/20 25 12:18 PM CDT 025 Active icosapent ethyL 1 gram capsuleIndication s:Hypertriglyceri demia Take 2 capsules (2 g) by mouth two times daily with meals. 60 Capsule 5 01/10/20 25 12:18 PM CDT 025 Active carbidopa-levodop a (25-100 mg) 25-100 mg tabletIndications :Parkinsonism, unspecified Parkinsonism type (HC) Take 2 Tablets by mouth four times daily. 2 tablets QID @ 0800, noon, 1600, and 2000 Active lisinopriL 10 mg tabletIndications :Essential hypertension Take 0.5 Tablets (5 mg) by mouth once daily. 025 Active cholecalciferol (VITAMIN D3) 1,000 unit capsule Take 1 capsule by mouth once daily. 0 019 2024 Discontinued(* Patient states no longer taking) durable medical equipment (DME)Indications: Overactive bladder,Parkinson 's disease without dyskinesia, with fluctuating manifestations (HC) Depends medium weight 203#. 2 daily. 60 Each 2 024 2024 Discontinued(P harmacist change per medication history (E-cancel not sent)) Diaper,Brief, Adult,DisposableI ndications:Urge incontinence of urine Size medium, weighs 204 pounds. For home use. 60 Each 11 024 2024 Discontinued(P harmacist change per medication history (E-cancel not sent)) nebulizer accessories kitIndications:Mo derate persistent asthma without complication (HC) With mask. For home use. Length of need: Lifetime 1 Kit 11 024 2024 Discontinued(P harmacist change per medication history (E-cancel not sent)) lisinopriL (PRINIVIL; ZESTRIL) 10 mg tabletIndications :Essential hypertension Take 1 Tablet (10 mg) by mouth once daily. 90 Tablet 3 024 2024 Discontinued(R eorder (E-cancel not sent)) carbidopa-levodop a, 25-100 mg, (SINEMET 25-100) 25-100 mg tabletIndications :Parkinsonism, unspecified Parkinsonism type (HC) TAKE 2 TABLETS BY MOUTH IN THE MORNING, THEN 1 TABLET AT 2 PM, & 2 TABLET IN THE EVENING. 450 Tablet 3 024 2024 Discontinued methocarbamoL 500 mg tabletIndications :Back pain, unspecified back location, unspecified back pain laterality, unspecified chronicity Take 1 Tablet (500 mg) by mouth every 8 hours if needed for Muscle Spasm. 15 Tablet 025 2024 Discontinued(P harmacist change per medication history (E-cancel not sent)) traMADoL 50 mg tabletIndications :Primary osteoarthritis involving multiple joints,Other chronic pain Take 1 Tablet (50 mg) by mouth every 6 hours if needed for Pain. Max 1 per day 30 Tablet 025 2024 Discontinued(R eorder (E-cancel not sent)) warfarin 2 mg tabletIndications :History of pulmonary embolism,Anticoag ulation monitoring, INR range 2-3 Take by mouth 12/19: 1 mg; Otherwise 3 mg every Sun, Sun; 2 mg all other days or as directed 2024 Discontinued(O ther - add note to specify (E-cancel not sent)) warfarin 2 mg tabletIndications :History of pulmonary embolism,Anticoag ulation monitoring, INR range 2-3 Take by mouth 2 mg (2 mg x 1) every day in the evening OR as directed 025 2024 Discontinued(O ther - add note to specify (E-cancel not sent)) warfarin 2 mg tabletIndications :History of pulmonary embolism,Anticoag ulation monitoring, INR range 2-3 Take by mouth 01/08: Hold; 01/09: Hold; 01/10: Hold; 01/11: Hold; 01/12: Hold; Otherwise 2 mg every day in the evening OR as directed 025 2024 Discontinued(R eorder (E-cancel not sent)) warfarin 2 mg tabletIndications :History of pulmonary embolism,Anticoag ulation monitoring, INR range 2-3 Take by mouth 01/08: Hold; 01/09: Hold; 14: Hold; 15: Hold; 01/12: Hold; Otherwise 1 mg every Sun; 2 mg all other days in the evening OR as directed 025 2024 Discontinued(* IP Discontinued) Hospital, Clinic, or Other Facility Administered Medication Ordered Dose Route Frequency Start Date End Date Status cyanocobalamin (VITAMIN B12) 1,000 mcg/mL injection 1,000 mcgIndications:B12 deficiency 1000 mcg IM Q 4 WEEKS (28 DAYS) 01/22/2025 6 Active cyanocobalamin 1,000 mcg injection (VITAMIN B12)Indications:B1 2 deficiency 1000 mcg IM Q 4 WEEKS (28 DAYS) 05/11/2020 5 Discontinued Active Problems Problem Noted Date Diagnosed Date Aortic stenosis 01/06/2025 Smoker 01/06/2025 Hyperkalemia 01/05/2025 Incomplete bladder emptying 11/10/2024 Sensorineural hearing loss, bilateral 09/11/2024 COPD with acute exacerbation 09/04/2024 Hemorrhoids, external 11/27/2023 Neuropathy 11/27/2023 Closed fracture of proximal end of left humerus 03/30/2023 Carpal tunnel syndrome of left wrist 11/27/2022 LBBB (left bundle branch block) 02/22/2022 Cognitive impairment 10/25/2021 Overview (10/25/2021): Pt scored 4.4/5.6 indicating moderate global cognitive impairment. At this cognitive level, solving new problems, ancticipating needs and correcting mistakes is imapired. There is no new independent learned at this stage. At this level, the pt can be left alone for short periods of time with procedure for how to call for assistance, would benefit from daily supervision for safety and assistance/supervision with IADLs. Pt will benefit from HH OT for home safety assessment and IADLs, and OP OT for a driving assessment. 10/25/2021 Anticoagulation monitoring, INR range 2-3 2021 History of stroke 10/24/2021 COPD with acute exacerbation 10/24/2021 Duodenal ulcer without hemor rhage, perforation, or obstruction 09/30/2021 Parkinsonism 09/17/2021 Overview (05/28/2024): 2000 started Sinemet Followed by [facility] History of pulmonary embolism 09/16/2021 Overview (01/20/2022): Large clot burden with right ventricular strain. Plan for lifelong anticoagulation. Chronic heart failure with preserved ejection fr action 09/12/2021 CVA (cerebral vascular accident) 08/17/2021 Controlled substance agreement signed 08/10/2021 Overview (04/24/2022): 04/24/22 Sissy Lee MD/psychiatry Severe episode of recurrent major depressive disorder, without psychotic features 01/07/2021 Adjustment disorder with mixed anxiety and depre ssed mood 11/20/2020 Parkinsonism 05/26/2020 Chronic diastolic CHF (congestive heart failure) 08/09/2019 Chronic obstructive pulmonary disease 08/09/2019 B12 deficiency 07/11/2019 Paroxysmal atrial fibrillation 07/13/2018 Overview (05/28/2024): Primarily in normal sinus rhythm, on warfarin for anticoagulation. Paroxysmal atrial fibrillation 06/24/2018 Incidental lung nodule, greater than or equal to 8mm 01/29/2018 Neurodermatitis 11/03/2017 Moderate persistent asthma without complication 05/28/2017 Drug-induced blepharospasm 04/23/2015 Hypothyroidism 01/14/2014 Osteoarthritis, multiple joints 10/07/2013 Major depressive disorder, recurrent episode, mo derate 02/20/2013 Overview (12/22/2014): S/p ECT treatments, started in July 2012, completed in February 2013 meds: Wellbutrin XL Prozac Zoloft Celexa Lexapro BuSpar Cymbalta Risperdal--Zyprexa--Seroquel--Geodon Abilify -- TD from a SGA, which one is unknown Doxepin New 1st deg AV block with nortriptyline--resolved off med 02/2012 -- also made picking worse Klonopin Allardt -- not effective for depression Remeron; held as pt had bradycardia, previously was tolerating, ?connection He has nausea with initiation of Effexor though anesthesia with ECT was also changed around that time. May benefit from another Effexor trial in the future. Impulse control disorder, unspecified 09/02/2012 Overview (09/02/2012): Skin picking BPH (benign prostatic hypertrophy) 05/01/2012 Obstructive sleep apnea 12/02/2011 Tardive dyskinesia 11/30/2011 Depression with anxiety 11/30/2011 ANTWON (obstructive sleep apnea) 01/04/2009 Overview (01/19/2009): Mild, per sleep study Type 2 diabetes mellitus without complication Essential hypertension Restless legs syndrome (RLS) Esophageal reflux Mixed hyperlipidemia Overactive bladder Resolved Problems Problem Noted Date Diagnosed Date Resolved Date Respiratory insufficiency 09/04/2024 History of pulmonary embolus (PE) 09/04/2024 12/23/2024 Hypotension 11/29/2023 05/28/2024 MARILY (acute kidney injury) 11/29/2023 Impacted stool in intestine 11/27/2023 05/28/2024 Essential tremor 11/27/2023 05/28/2024 Acute on chronic hypoxic respiratory failure 05/28/2024 Pneumonia due to COVID-19 virus 07/18/2023 05/28/2024 Overview (05/28/2024): 06/2023: hospitalized 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 08/14/2023 COVID 07/15/2023 08/06/2023 COPD with acute exacerbation 08/12/2022 08/28/2022 Acute diastolic heart failure 10/31/2021 12/09/2021 Elevated lactic acid level 10/31/2021 0 01/20/2022 Anemia 10/25/2021 01/20/2022 Hypokalemia 10/25/2021 01/20/2022 Hypocalcemia 10/25/2021 01/20/2022 HCAP (healthcare-associated pneumonia) 10/24/2021 10/31/2021 Acute respiratory failure with hypoxia 10/24/2021 10/31/2021 Acute pulmonary embolism 09/15/2021 Bleeding gastrointestinal 09/12/2021 Weakness 07/18/2021 09/05/2021 Community acquired pneumonia of left lower lobe of lung 06/21/2021 08/22/2021 Generalized weakness 03/01/2021 022 Chronic diarrhea 03/01/2021 10/24/2021 Controlled substance agreement signed 10/17/2019 08/10/2021 Overview (10/17/2019): Signed 10/13/2019 Dr Sissy Lee Psychiatry Myalgia 12/20/2018 09/05/2021 Bilateral thigh pain 12/20/2018 022 Right hip pain 11/18/2018 10/31/2021 Psoas tendinitis of right side 11/18/2018 01/20/2022 Right knee pain 11/18/2018 10/31/2021 Hypertensive emergency 06/22/201806/28 Cardiac enzymes elevated 06/22/2018 MRSA infection 04/23/2018 11/08/2021 Wound infection after surger y, subsequent encounter 02/07/2018 07/15/2018 Staphylococcus aureus bacteremia 01/29/2018 07/15/2018 Infection of shoulder 01/28/20182018 S/P right rotator cuff repair 01/18/2018 06/23/2024 Tear of right rotator cuff 01/11/2018 0 01/20/2022 AC joint arthropathy 01/11/2018 024 Skin lesions 01/11/2018 01/14/2018 Rotator cuff syndrome of right shoulder 01/11/2018 05/28/2024 Kidney cysts 11/23/2017 05/28/2024 Bilateral renal masses 11/03/201701/14 SBO (small bowel obstruction) 11/02/2017 07/15/2018 Right shoulder pain 09/28/2017 07/15/20 Rotator cuff syndrome of right shoulder 09/28/2017 07/15/2018 Bursitis of right shoulder 09/28/2017 1 09/15/2017 Bicipital tendonitis of right shoulder 09/28/2017 01/20/2022 Influenza A 08/10/2017 01/14/2018 Reactive airway disease 01/16/2017 04/0 10/2021 ARRIAGA (dyspnea on exertion) 01/16/2017 Controlled substance agreement signed 12/12/2016 12/12/2021 Overview (12/12/2016): Signed: 07/10/16, Dr. Henrry Steven MD / psychiatry Chronic enteritis 06/21/2016 06/23/2024 Overview (06/21/2016): S/p small bowel resection Small bowel obstruction 06/08/201605/31 Mesenteric lymphadenopathy 05/28/2016 0 01/20/2022 Small bowel obstruction 05/28/201605/31 Intestinal adhesions with obstruction 02/24/2016 04/20/2016 Generalized anxiety disorder 02/24/2016 10/24/2021 Small bowel obstruction 02/11/201605/01 Tongue thrusting 04/07/2015 09/16/2021 Syncope 01/03/2013 04/20/2016 Major depressive disorder, r ecurrent episode, severe, without mention of psychotic behavior 10/18/2012 11/18/2012 Vitamin D deficiency 09/27/2012 022 Major depressive disorder, r ecurrent episode, severe, without mention of psychotic behavior 09/20/2012 10/09/2012 Major depressive disorder, r ecurrent episode, severe, without mention of psychotic behavior 08/10/2012 02/20/2013 MARGARET (generalized anxiety disorder) 08/10/2012 09/02/2012 Recurrent major depressive disorder 07/31/2012 06/02/2018 Diabetes mellitus, type 2 07/31/2012 Neurodermatitis 04/23/2012 03/18/2019 Generalized anxiety disorder 01/22/2012 05/28/2016 Encounter for long-term (cur rent) use of other medications 01/22/2012 01/20/2022 Overview (01/22/2012): Benzodiazepine. Cont sub agreement signed 01/22/2012. Severe recurrent major depre ssion without psychotic features 11/30/2011 01/22/2012 Major depression, recurrent 05/17/2009 08/30/2012 Impaired fasting glucose 03/26/2007 Anxiety state, unspecified 0 01/22/2012 Depressive disorder, not elsewhere classified 05/17/2009 Encounter for screening colonoscopy 01/14/2018 History of MRSA infection Cough 09/05/2021 Colitis 09/05/[address] scan, stomach Encounters Date Type Department Care Team Description 01/21/2025 2:00 PM CDT Office Visit [facility] [address] [facility] [address] [id number] Leyda Matt MD Consult (STAT REFERRAL BY Wilian Bradley MD/Referral: [id number] (Authorized)/Dept: DHAED/Dx: Aortic valve stenosis, etiology of cardiac valve disease unspecified [I35.0]; Dyspnea, unspecified type [R06.00] /PT states feeling dizzy and weak. He had a fall in lobby coming here. No other cardiac symptoms today. ) 01/21/2025 10:50 AM CDT Office Visit [facility] [address] [place] [address] Mikala Chung MD Hospital F/U 01/21/2025 Telephone [facility] [address] [facility] [address] [place] [phone] Gisele Hopper PA 01/21/2025 Travel 01/20/2025 Refill [facility] [address] [place] [address] Mikala Chung MD Refill Request (Albuterol) 01/13/2025 Telephone [facility] [address] [facility] [address] [place] [phone] Cardiology, Anw Appointment 01/12/2025 12:14 PM CDT - 01/12/2025 3:53 PM CDT Emergency [facility] [address] [place] [address] Wilian Bradley MD Aortic valve stenosis, etiology of cardiac valve disease unspecified (Primary Dx); Dyspnea, unspecified type; Chronic obstructive pulmonary disease, unspecified COPD type (HC); Parkinson's disease, unspecified whether dyskinesia present, unspecified whether manifestations fluctuate (HC) Discharge Disposition: Home Self Care 01/12/2025 Telephone [facility] [address] [place] [address] Sunny Blanco MD Procedure 01/12/2025 Travel 01/12/2025 Nurse Triage [facility] [address] [place] [address] Isaiah Hung RN Shortness Of Breath 01/12/2025 Patient Outreach [facility] [address] [place] [address] Isaiah Hung RN Primary RN Care Management (Hospital DC: 01/09/25/LACE: 79/Aortic Stenosis ); Hospital F/U 01/07/2025 Telephone [facility] [address] [place] [phone] Mikala Chung MD Anticoagulation (Annual re-enrollment /) 01/06/2025 2:23 PM CDT - 01/09/2025 1:08 PM CDT Hospital Encounter [facility] [address] [place] [address] [facility] MD Nelson, Sunny Hampton MD Coronary artery disease, unspecified vessel or lesion type, unspecified whether angina present, unspecified whether swinomish or transplanted heart (Primary Dx); Cardiovascular symptoms; Paroxysmal atrial fibrillation (HC); Nonrheumatic aortic valve stenosis; Hypertriglyceridemia; Parkinsonism, unspecified Parkinsonism type (HC) Discharge Disposition: Home Health 01/06/2025 Travel 01/05/2025 1:01 PM CDT - 01/06/2025 1:20 PM CDT Hospital Encounter [facility] [address] [place] [address] Maverikc Crowley MD Hospitalist, [facility] Brittney Wilson MD Beardsley, Yefri Cedeno, Nika Smiley NP COPD exacerbation (HC) (Primary Dx); Shortness of breath; Cough, unspecified type; Bilateral lower extremity edema; Generalized weakness; Parkinsonism, unspecified Parkinsonism type (HC); Positional lightheadedness; Asthma, unspecified asthma severity, unspecified whether complicated, unspecified whether persistent (HC); First degree atrioventricular block; Anticoagulated on Coumadin; Chronic heart failure with preserved ejection fraction (HC); Hyperkalemia; Renal insufficiency; Elevated brain natriuretic peptide (BNP) level Discharge Disposition: Ot Institution w Planned Readmission 01/05/2025 Travel 01/05/[address] [place] [address] Mikala Chung MD 01/05/2025 Nurse Triage [address] [place] [address] Mikala Chung MD Shortness Of Breath (Worsening ) 01/05/2025 Nurse Triage [address] [place] [address] Mikala Chung MD Breathing Problem 01/02/2025 Anticoagulation (warfarin) [address] [phone] 1, [facility] 12/29/[address] [address] Mikala Chung MD Refill Request (traMADoL) 12/29/2024 Anticoagulation (warfarin) [address] [address] 1, [facility] Anticoagulation (Procedure hold instructions) 12/26/[address] [place] [address] Mikala Chung MD Anticoagulation (Chart update: Procedure 01/13/2025) 12/26/2024 Anticoagulation (warfarin) [address] [place] [address] 1, [facility] Anticoagulation (Home Care) 12/25/2024 11:00 AM CDT Office Visit [facility] [address] [place] [address] Sunny Blanco MD Musculoskeletal Problem (Follow up back pain, HUY on 11/25/24) 12/25/2024 Travel 12/23/2024 2:10 PM CDT Office Visit [address] [place] [address] Mikala Chung MD Hospital F/U 12/23/2024 Travel 12/19/2024 Anticoagulation (warfarin) [facility] [address] [place] [address] 1, [facility] Anticoagulation (Home care) 12/19/2024 Refill [facility] [address] [place] [address] Sissy Lee MD Refill Request (Mirtazapine) 12/12/2024 1:51 PM CDT - 12/12/2024 7:07 PM CDT Emergency [facility] [address] [place] [address] Caroline Guy PA Hypoxia (Primary Dx); COPD exacerbation (HC); Shortness of breath Discharge Disposition: Home Self Care 12/12/2024 Travel 12/10/2024 Telephone [facility] [address] [place] [address] Mikala Chung MD Anticoagulation 12/09/2024 Orders Only [facility] Scanner 1 scan: (1-Ord) [facility] DERMATOLOGY, BIOPSY BY SHAVE METHOD, 12/09/2024 12/08/2024 2:00 PM CDT Telemedicine [facility] [address] [place] [address] Tere Gusman, JESUS Derm Problem (Lesion left cheekbone x 5 days. Does have history of MRSA.) 12/08/2024 Travel 12/04/2024 1:45 PM CDT Orders Only [facility] [address] [place] [address] Lab, [facility] 12/04/2024 Anticoagulation (warfarin) [facility] [address] [place] [address] 1, [facility] Anticoagulation 12/04/2024 Travel 12/02/2024 11:15 AM CDT Nurse/Clinic Staff Only [address] [address] Immunization/Injectio n (B12 ) 12/02/[address] [address] Mikala Chung MD Medication Management (carbidopa-levodopa, 25-100 mg, (SINEMET 25-100) 25-100 mg tablet) 12/02/2024 Refill [facility] [address] [place] [address] Sissy Lee MD Refill Request (Venlafaxine) 12/02/2024 Travel 12/01/[address] [address] Mikala Chung MD Refill Request (Duoneb ) 11/27/[address] [address] Mikala Chung MD Anticoagulation (Lab Appointment) 11/27/[address] [address] Mikala Chung MD Anticoagulation (Dosing review) 11/26/2024 3:25 PM CDT Office Visit [address] [address] Mikala Chung MD Derm Problem (area on left buttock and left ear); Leg Swelling (also bruise on left ortiz) 11/26/2024 Travel 11/26/2024 Telephone [facility] [address] [place] [address] Sunny Blanco MD Questions 11/25/2024 9:00 AM CDT Office Visit [facility] [address] [place] [phone] Sunny Blanco MD Procedure (L4-5 ILESI) 11/24/2024 Telephone [facility] [address] [place] [address] Sunny Blanco MD Questions 11/18/[address] [address] Mikala Chung MD Refill Request (Pregabalin) 11/18/2024 Anticoagulation (warfarin) [address] [address] 1, [facility] Anticoagulation (Chart Update) 11/17/2024 Telephone [facility] [address] [place] [address] Sunny Blanco MD Questions 11/11/2024 Anticoagulation (warfarin) [address] [address] 1, [facility] Anticoagulation (Chart update) 11/11/[address] [address] Mikala Chung MD Medication Management 11/11/[address] [address] Mikala Chung MD return call (Patient called in to return call received./) 11/11/[address] [address] Mikala Chung MD Anticoagulation (Procedure date change) 11/10/2024 11:30 AM CDT Office Visit [address] [address] Em Brice AuD Hearing Aid (recheck) 11/10/2024 11:00 AM CDT Office Visit [address] [address] Basilio Schaffer MD Recheck (Overactive bladder) 11/10/2024 Travel 11/07/[address] [place] [address] Mikala Chung MD Questions (traMADoL 50 mg tablet/) 11/06/[address] [place] [address] Mikala Chung MD Results 11/05/2024 1:00 PM CDT Orders Only [address] [place] [address] Lab, [facility] 11/05/2024 10:50 AM CDT Office Visit [address] [place] [address] Mikala Chung MD Follow Up (ED follow up back pain- better); Ear Problem; Ulcer (on buttock) 11/05/2024 Anticoagulation (warfarin) [address] [place] [address] , [facility] Anticoagulation (OV) 11/05/[address] [place] [address] Mikala Chung MD Refill Request (Tramadol) 11/04/2024 1:00 PM CDT Nurse/Clinic Staff Only [address] [place] [address] Immunization/Injectio n (B12) 11/04/2024 Travel 11/04/[address] [place] [address] Mikala Chung MD Refill Request (Amlodipine) 10/31/[address] [place] [address] Mikala Chung MD Anticoagulation (Orders for home care) 10/29/2024 Anticoagulation (warfarin) [address] [address] 1, [facility] Anticoagulation (Chart Update) 10/28/2024 Refill [facility] [address] [place] [address] Mikala Chung MD Refill Request (Torsemide) 10/28/2024 Refill [facility] [address] [place] [address] Sissy Lee MD Refill Request (Buspirone, Clonazepam) 10/28/2024 Telephone [facility] [address] [place] [address] Mikala Chung MD Anticoagulation (Procedure 11/11/24) 10/28/2024 Anticoagulation (warfarin) [address] [address] 1, [facility] Anticoagulation (Home care) 10/28/2024 Telephone [facility] [address] [place] [address] Sunny Blanco MD Appointment (11/11/24) 10/24/2024 10:08 AM CDT - 10/24/2024 3:48 PM CDT Emergency [facility] [address] [place] [address] Freya Singh MD Back pain, unspecified back location, unspecified back pain laterality, unspecified chronicity (Primary Dx); Chronic obstructive pulmonary disease, unspecified COPD type (HC) Discharge Disposition: Home Self Care 10/24/2024 Travel 10/24/2024 Nurse Triage [facility] [address] [place] [address] Mikala Chung MD Back Pain 10/22/2024 11:15 AM CDT Office Visit [facility] [address] [place] [address] Sissy Lee MD Medication Management (Things are so so, things are not going good) 10/22/2024 10:15 AM CDT Ancillary Procedure [facility] [address] [facility] [address] 10/22/2024 9:40 AM CDT Office Visit [facility] [address] [place] [address] Sunny Blanco MD Musculoskeletal Problem (Consult low back pain) 10/22/2024 Travel from Last 3 Months Immunizations Immunization Administration Dates Next Due AMB Influenza, IIV3 (Age >=3 years)(Flu Clinic Only) 05/11/2011,05/20/2009 COVID-19 VACCINE SPIKEVAX (M ODERNA 50MCG/0.5ML) 12YO+ PFS 05/13/2024,05/11/2023 COVID-19 vaccine (Pfizer-Bio NTech 30mcg/0.3mL) 12YO+ BIVALENT PF, MDV 04/14/2022 COVID-19 vaccine (Pfizer-Bio NTech 30mcg/0.3mL) 12YO+ CONG-SUCROSE PF, MDV 12/09/2021 COVID-19 vaccine (Pfizer-Bio NTech 30mcg/0.3mL) PF, MDV 07/05/2021,11/10/2020,10/20/2020 Influenza Virus, Unspecified 04/23/2018, 05/20/2009,06/30/2008,06/19,06/22/2006,06/21/2005,08/10/2004 ,05/20/2003 Influenza, High-dose Inactivated 05/04/2016,11/0 03/2015,06/02/2014 Influenza, IIV3 (Age 6-35 mos) 05/11/2011 Influenza, IIV3 (Age >=3 years) 06/12/20 13,05/09/2010,05/20/2009,06/30,06/19/2007,06/22/2006,06/21/2005 ,08/10/2004,05/20/2003 Influenza, Inactivated AIIV4 (Age 65+ Years) Preserv Free 05/11/2023,04/14/2022,04/05/2021,05/26 Influenza, Inactivated IIV3 (Age 65+ Years) Preserv Free 05/13/2024,04/07/2019,04/23/2018,04/16 Pneumococcal Poly,23-Valent (Pneumovax) 09/05/2013 Pneumococcal conj 13-Valent (Prevnar 13) 03/03/2016 RSV, Recombinant ADJ Reconst ituted (Arexvy 120MCG/0.5mL) 07/11/2023 Td (Age >=7 Years) 05/20/2003 Td, Preservative Free (age >= 7 Years) 1 Tdap 07/15/2018 Zoster (Shingrix-RZV, recombinant) 10/24/2023, Family History Medical History Relation Name Comments Alcohol/Drug Father GI Disease Father colon blockage in 70s Asthma Maternal Grandmother Arthritis Mother Thyroid Disease Mother Psychiatric illness Paternal Aunt nervou s disorder Cancer Paternal Uncle stomach canc er, unknown age Alcoholism Sister Relation Name Status Comments Brother Alive Father Maternal Grandmother Mother Paternal Aunt Paternal Uncle Sister Alive Social History Tobacco Use Types Packs/Day Years Used Date Smoking Tobacco: Former Cigarettes 3 6 0 07/30/1961 - 07/30/1967 Passive Smoke Exposure: Past Smokeless Tobacco: Never Tobacco Cessation:Counseling Given: Yes Comments:quit smoking in his 20's Alcohol Use Standard Drinks/Week Comments Not Currently 0 (1 standard drink = 0.6 oz pur e alcohol) PHQ-2 Answer Date Recorded PHQ-2 TOTAL SCORE 2 10/22/2024 Social Connections Answer Date Recorded Do you often feel lonely or isolated from those around you? 0 01/06/2025 Alcohol Use Answer Date Recorded How often do you have a drink containing alcohol ? 0 11/22/2021 Average Number of Drinks Not on file 022 Frequency of Binge Drinking Not on file 10/29 Financial Resource Strain Answer Date R ecorded Difficulty of Paying Living Expenses 2 01/06/2025 Difficulty of Paying Living Expenses 1 01/06/2025 Food Insecurity Answer Date Recorded Do you worry your food will run out before you are able to buy more? 1 01/06/2025 Transportation Needs Answer Date Record ed Does lack of transportation keep you from medica l appointments? 1 01/06/2025 Does lack of transportation keep you from work, meetings or getting things that you need? 1 01/06/2025 Housing Stability Answer Date Recorded What is your housing situation today? 1 01/06/2025 Interpersonal Safety Answer Date Record ed Are you being hit, kicked, p ushed or yelled at (see row info)? No 01/12/2025 Interpersonal Safety Abuse 12 - 18 Not on file 01/12/2025 Interpersonal Safety Ambulatory Vulnerability No t on file 01/12/2025 Utilities Answer Date Recorded Do you have trouble paying f or utilities (for example, heat, electricity, water, phone)? 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 on file Not on file Not on file Obstetrics History Last Filed Vital Signs Vital Sign Reading Time Taken Comments Blood Pressure 88/61 01/21/2025 2:08 PM CDT Pulse 71 01/21/2025 2:08 PM CDT Temperature 36.9 C (98.4 F) 01/12/2025 12:25 PM CDT Respiratory Rate 17 01/12/2025 12:25 PM CDT Oxygen Saturation 92% 01/21/2025 2:08 PM CDT Inhaled Oxygen Concentration - - Weight 90.7 kg (200 lb) 01/21/2025 2:08 PM CDT Height 177.8 cm (5' 10) 01/21/2025 2:08 PM CDT Body Mass Index 28.7 01/21/2025 2:08 PM CDT Plan of Treatment Upcoming Encounters Date Type Department Care Team (Late st Contact Info) Description 01/27/2025 11:00 AM CDT Nurse/Clinic Staff Only [facility] [address] [place] [address] 02/03/2025 11:00 AM CDT Office Visit [facility] [address] [place] [address] Sunny Blanco MD [address] [place] [address] 02/24/2025 11:00 AM CDT Nurse/Clinic Staff Only [address] [address] 02/24/2025 12:55 PM CDT Office Visit [address] [address] Mikala Chung MD [address] [place] [address] 04/20/2025 10:45 AM CDT Office Visit [facility] [address] [place] [address] Sissy Lee MD [address] [place] [address] Health Maintenance Due Date Last Done Comments COVID-19 vaccine series (2023- season) 2024 05/13/2024, 05/11/2023, 04/14/2022, Additional history exists Medicare Wellness for age 65+ 06/24/2025 06/23/2024, 08/28/2022, 07/15/2018 Depression screening for age 12+ 10/24/2025 10/24/2024, 10/24/2024, 10/22/2024, Additional history exists BMI (ht and wt on same day) for age 18+ 01/21/2026 01/21/2025, 06/23/2024, 01/03/2024, Additional history exists Tetanus booster 07/15/2028 07/15/2018, 1203/2011, 05/20/2003 Pneumococcal series for age 50+ Completed 03/03/2016, 09/05/2013 Hepatitis C screening for age 18-79 Completed 07/15/2018 Tdap Completed 07/15/2018 RSV vaccine for adults or Completed 07/11/2023 Zoster (shingles) series for age 50+ Completed 10/24/2023, 07/11/2023 Influenza Vaccine Completed 05/13/2024, , 04/14/2022, Additional history exists Hepatitis B series for 19+ Aged Out N o longer eligible based on patient's age to complete this topic Goals Goal Patient Goal Type Associated Problems Recent Progress Patient-Stated? Author BLOOD PRESSURE-MA INTAINS BP LESS THAN 130/80 Blood Pressure No Romelia Ba RN Medical Devices Implanted Type Area Copyist Device Identifier Shelf Expiration Date Model / Serial / Lot [id number] - [id number] Implanted:Qty: 1 on 01/16/2018 by Aguilar Cordoba MD at [facility] Right: Shoulder [employer] 04/28/2019 AR-[id number] NF / / [id number] Ancr Soft Tissue 4.75mm X 19mmswivelock - [id number] Implanted:Qty: 1 on 01/16/2018 by Aguilar Cordoba MD at [facility] Right: Shoulder [employer] 08/29/2019 [id number] C# / / [id number] Bone Matrix 5cc Stimulan Kit Rapid Cure - [id number] Implanted:Qty: 1 on 01/30/2018 by Aguilar Cordoba MD at [facility] Right: Shoulder [employer] 06/28/2020 620-005# / / [id number]/[id number] Cmnt Bone Simplex Atb Tobramycin - [id number] Implanted:Qty: 1 on 03/19/2018 by Aguilar Cordoba MD at [facility] Right: Shoulder [employer] 04/28/2019 [id number] 1# / / [id number] Procedures Procedure Name Priority Date/Time Associated Diagnosis Comments TROPONIN T (HS) ONE TIME Timed 01/12/2025 3:13 PM CDT MR HEAD BRAIN WO STAT 01/12/2025 2:43 PM CDT EKG 12 LEAD STAT 01/12/2025 1:19 PM CDT XR CHEST 1 VIEW PORTABLE STAT 01/12/2025 1:06 PM CDT D-DIMER,QUANTITATIVE STAT 01/12/2025 12:40 PM CDT PRO-BNP STAT 01/12/2025 12:40 PM CDT TROPONIN T (HS) ACUTE W/2HR REFLEX STAT 01/12/2025 12:40 PM CDT BASIC METABOLIC PANEL STAT 01/12/2025 12:40 PM CDT CBC W PLT NO DIFF STAT 01/12/2025 12: 40 PM CDT BEDSIDE US STUDY ARCHIVE Routine 01/12/2025 12:32 PM CDT CREATININE Early AM 01/09/2025 8:18 AM CDT POTASSIUM Early AM 01/09/2025 8:18 AM CDT SODIUM Early AM 01/09/2025 8:18 AM CDT PROTIME-INR Early AM 01/09/2025 8:18 AM CDT SCAN-CARDIAC STRIP 01/09/2025 4: 50 AM CDT COMPREHENSIVE BLOOD GAS MIXED VENOUS Timed 01/08/2025 6:03 PM CDT CVL CORONARY ANGIOGRAM POSS PCI Routine 01/08/2025 5:52 PM CDT Cardiovascular symptoms US CAROTID DUPLEX BILATERAL Routine 01/08/2025 4:07 PM CDT CBC WITH AUTO DIFFERENTIAL Early AM 01/08/2025 6:13 AM CDT CREATININE Early AM 01/08/2025 6:13 AM CDT POTASSIUM Early AM 01/08/2025 6:13 AM CDT SODIUM Early AM 01/08/2025 6:13 AM CDT CBC WITH AUTO DIFFERENTIAL Early AM 01/08/2025 6:13 AM CDT PROTIME-INR Early AM 01/08/2025 6:13 AM CDT SCAN-CARDIAC STRIP 01/08/2025 5: 29 AM CDT XR ORTHOPANTOGRAM Routine 01/07/2025 4:4 2 PM CDT SCAN-CARDIAC STRIP 01/07/2025 10 :28 AM CDT CTA CHEST ABD PELVIS TAVR - CV DUAL READ Routine 01/07/2025 7:57 AM CDT CTA CHEST ABD PELVIS TAVR - RAD DUAL READ Routine 01/07/2025 7:57 AM CDT PROTIME-INR Early AM 01/07/2025 6:57 AM CDT BASIC METABOLIC PANEL Early AM 01/07/2025 6:57 AM CDT CBC W PLT NO DIFF Early AM 01/07/2025 6:5 7 AM CDT SCAN-CARDIAC STRIP 01/07/2025 1: 10 AM CDT SCAN-CARDIAC STRIP 01/06/2025 4: 21 PM CDT SCAN-CARDIAC STRIP 01/06/2025 9: 21 AM CDT LDL CHOLESTEROL,DIRECT ELIAS 5:48 AM CDT TROPONIN T (HS) ONE TIME ELIAS 01/06/2025 5:48 AM CDT MAGNESIUM ELIAS 01/06/2025 5:48 AM CDT CREATININE Early AM 01/06/2025 5:48 AM CDT POTASSIUM Early AM 01/06/2025 5:48 AM CDT SODIUM Early AM 01/06/2025 5:48 AM CDT PROTIME-INR Early AM 01/06/2025 5:47 AM CDT ECHO TTE COMPLETE W CONTRAST STAT 01/05/2025 6:17 PM CDT SCAN-CARDIAC STRIP 01/05/2025 4: 20 PM CDT XR CHEST 2 VIEWS PA AND LATERAL STAT 01/05/2025 1:46 PM CDT LIPID PANEL ELIAS 01/05/2025 1:15 PM CDT HEMOGLOBIN A1C ELIAS 01/05/2025 1:15 PM CDT EXTRA TUBE BLUE Today 01/05/2025 1:15 PM CDT PROTIME-INR STAT 01/05/2025 1:15 PM CDT TSH ELIAS 01/05/2025 1:15 PM CDT MAGNESIUM ELIAS 01/05/2025 1:15 PM CDT PROCALCITONIN STAT 01/05/2025 1:15 PM CDT PRO-BNP ELIAS 01/05/2025 1:15 PM CDT BASIC METABOLIC PANEL STAT 01/05/2025 1:15 PM CDT CBC W PLT NO DIFF STAT 01/05/2025 1:1 5 PM CDT EKG 12 LEAD STAT 01/05/2025 1:03 PM CDT TROPONIN T (HS) ONE TIME Timed 12/12/2024 5:31 PM CDT XR CHEST 2 VIEWS PA AND LATERAL STAT 12/12/2024 3:24 PM CDT EXTRA TUBE MINA Today 12/12/2024 3:23 PM CDT CBC WITH AUTO DIFFERENTIAL STAT 12/12/2024 3:05 PM CDT PRO-BNP STAT 12/12/2024 3:05 PM CDT TROPONIN T (HS) ACUTE W/2HR REFLEX STAT 12/12/2024 3:05 PM CDT PROTIME-INR STAT 12/12/2024 3:05 PM CDT BASIC METABOLIC PANEL STAT 12/12/2024 3:05 PM CDT CBC WITH AUTO DIFFERENTIAL STAT 12/12/2024 3:05 PM CDT EKG 12 LEAD STAT 12/12/2024 2:29 PM CDT SCAN-OPERATIVE/PROCEDUR E REPORT 12/09/2024 12:00 AM CDT PROTIME-INR Routine 12/04/2024 1:51 PM CDT History of pulmonary embolism Anticoagulation monitoring, INR range 2-3 AMB EPIDURAL STEROID INJECTION Routine 11/25/2024 12:00 AM CDT Lumbar spondylosis Lumbar facet arthropathy Lumbar radiculopathy Degenerative scoliosis in adult patient SCAN-DIAGNOSTIC REPORT 12:00 AM CDT PROTIME-INR Routine 11/05/2024 12:50 PM CDT History of pulmonary embolism Anticoagulation monitoring, INR range 2-3 HEMOGLOBIN A1C Routine 11/05/2024 12:45 PM CDT Type 2 diabetes mellitus without complication, without long-term current use of insulin (HC) MR SPINE LUMBAR WO STAT 10/24/2024 12 :31 PM CDT XR SPINE LUMBAR 2 VIEWS Routine 10/23/19 10:21 AM CDT Lumbar spondylosis Lumbar facet arthropathy Lumbar radiculopathy Degenerative scoliosis in adult patient ANTI HCV Routine 07/15/2018 4:30 PM ADMINISTRATION VICE PRESIDENT Need for hepatitis C screening test from Last 3 Months or Most Recently Relevant to Health Maintenance Results * (ABNORMAL) TROPONIN T (HS) ONE TIME (01/12/2025 3:13 PM CDT) Only the most recent of3 resultswithin the time period is included. TROPONIN T HS 28(H) 6-15 ng/L ng/L 01/12/2025 3:35 PM CDT [facility] Blood BLOOD SPECIMEN / Unknown Butterfly / Unknown 01/12/2025 3:13 PM CDT 01/12/2025 3:16 PM CDT us Wilian Bradley MD CHEMISTRY Final Resu lt [facility] [address] [place] [address] * MR HEAD BRAIN WO (01/12/2025 2:43 PM CDT) Anatomical Region Laterality Modality BRAIN, HEAD Magnetic Resonan ce 01/12/2025 2:56 PM CDT Narrative 01/12/2025 2:56 PM CDT For Patients: As a result of the Cures Act, medical imaging exams and procedure reports are released immediately into your electronic medical record. You may view this report before your referring provider. If you have questions, please contact your health care provider. Indication: New onset unsteadiness. Concern for stroke. Technique: Multiplanar, multisequence MRI of the brain obtained without contrast. Comparison: CT head 12/20/2023, MRI brain 08/17/2021 Findings: Small chronic infarct at the high right frontal lobe. No evidence of acute/subacute ischemia, intracranial hemorrhage or abnormal extra-axial fluid collection. No midline shift or mass effect, hydrocephalus or herniation. Mild generalized cerebral volume loss and moderate chronic microangiopathy changes. Unremarkable midline structures. Preserved major intracranial arterial flow voids. Mild mucosal thickening throughout the ethmoid air cells. Trace right mastoid tip effusion. Bilateral lens implants. Impression: 1. No evidence of acute intracranial abnormality. 2. Small chronic right frontal lobe infarct, stable relative to 12/20/2023, new relative to 08/17/2021. 3. Mild generalized cerebral volume loss and nyzt-wa-shctjskm chronic microangiopathy changes. Dictated by Ilana Brumfield MD @ 01/12/2025 2:56:27 PM (Electronically Signed) Procedure Note Ilana Brumfield, DO - 01/12/2025 For Patients: As a result of the Cures Act, medical imagingexams and procedure reports are released immediately into your electronicmedical record. You may view this report before your referring provider.If you have questions, please contact your health care provider. Indication: New onset unsteadiness. Concern for stroke. Technique: Multiplanar, multisequence MRI of the brain obtained without contrast. Comparison: CT head 12/20/2023, MRI brain 08/17/2021 Findings: Small chronic infarct at the high right frontal lobe. No evidence ofacute/subacute ischemia, intracranial hemorrhage or abnormal extra-axialfluid collection. No midline shift or mass effect, hydrocephalus orherniation. Mild generalized cerebral volume loss and moderate chronicmicroangiopathy changes. Unremarkable midline structures. Preserved majorintracranial arterial flow voids. Mild mucosal thickening throughout theethmoid air cells. Trace right mastoid tip effusion. Bilateral lensimplants. Impression: 1. No evidence of acute intracranial abnormality. 2. Small chronic right frontal lobe infarct, stable relative to12/20/2023, new relative to 08/17/2021. 3. Mild generalized cerebral volume loss and upfj-df-hxfyptgr chronicmicroangiopathy changes. Dictated by Ilana Brumfield MD @ 01/12/2025 2:56:27 PM (Electronically Signed) Wilian Bradley MD MR Final Resu lt * EKG 12 LEAD (01/12/2025 1:19 PM CDT) Only the most recent of3 resultswithin the time period is included. Interpretation Sinus rhythm with 1st degree A-V block with Premature atrial complexes Left axis deviation Left ventricular hypertrophy with QRS widening and repolarization abnormality Inferior infarct (cited on or before 04-Sep-2024) Cannot rule out Anteroseptal infarct (cited on or before 04-Sep-2024) Abnormal ECG When compared with ECG of 05-Jan-2025 13:03, Premature atrial complexes are now Present [facility] NOW Ventricular Rate 63 BPM BEYOND NOW Atrial Rate 63 BPM BEYOND NOW P-R Interval 236 ms BEYOND NOW QRS Duration 130 ms BEYOND NOW QT 402 ms BEYOND NOW QTc 411 ms BEYOND NOW P Sherburn -13 degrees BEYOND NOW R Sherburn -41 degrees BEYOND NOW T Sherburn 39 degrees BEYOND NOW 01/12/2025 1:19 PM CDT 01/12/2025 2:39 PM CDT us Wilian Bradley MD EKG ORD Final Resu lt Performing Organization Address City/State/[facility] Co de Phone Number [place], [place] * XR CHEST 1 VIEW PORTABLE (01/12/2025 1:06 PM CDT) Anatomical Region Laterality Modality HEART, THORAX, CHEST Digital Rad iography 01/12/2025 1:09 PM CDT Narrative 01/12/2025 1:09 PM CDT For Patients: As a result of the Cures Act, medical imaging exams and procedure reports are released immediately into your electronic medical record. You may view this report before your referring provider. If you have questions, please contact your health care provider. Indication: Shortness of breath Comparison: Two-view chest January 05, 2025 Technique: Single AP view chest Findings: There are low lung volumes with persistent left basilar pleural thickening. Mildly increased interstitial markings. The right hemithorax is clear. There is no pneumothorax. The cardiac silhouette is mildly prominent. The bony thorax is grossly intact. Impression: Low lung volumes with likely persistent left basilar pleural effusion versus pleural thickening. Dictated by Stephen Sierra MD @ 01/12/2025 1:09:04 PM (Electronically Signed) Procedure Note Stephen Sierra MD - 01/12/2025 For Patients: As a result of the Cures Act, medical imagingexams and procedure reports are released immediately into your electronicmedical record. You may view this report before your referring provider.If you have questions, please contact your health care provider. Indication: Shortness of breath Comparison: Two-view chest January 05, 2025 Technique: Single AP view chest Findings: There are low lung volumes with persistent left basilar pleuralthickening. Mildly increased interstitial markings. The right hemithorax is clear. There is no pneumothorax. The cardiac silhouette is mildly prominent. The bony thorax is grossly intact. Impression: Low lung volumes with likely persistent left basilar pleural effusionversus pleural thickening. Dictated by Stephen Sierra MD @ 01/12/2025 1:09:04 PM (Electronically Signed) us Wilian Bradley MD GENERAL IMAGING Final Resu lt * (ABNORMAL) TROPONIN T (HS) ACUTE W/2HR REFLEX (01/12/2025 12:40 PM CDT) Only the most recent of2 resultswithin the time period is included. TROPONIN T HS 29(H) 6-15 ng/L ng/L 01/12/2025 1:11 PM CDT [facility] Blood BLOOD SPECIMEN / Unknown Venipuncture / Unknown 01/12/2025 12:40 PM CDT 01/12/2025 12:43 PM CDT [facility] - 01/12/2025 1:11 PM CDT hs-cTnT (Elecsys Troponin T Gen 5) concentration (s) above the sex-specific 99th percentile (16 ng/L or greater for males or 11 ng/L or greater for females) are indicative of myocardial injury. If initial hs-cTnT <=100 ng/L at presentation, a 0h/2h ABSOLUTE (ng/L) delta change (rising or falling) of >=10 ng/L suggests a significant change, whereas a 0h/2h delta change <=3 ng/L suggests no significant change. If initial hs-cTnT >100 ng/L at presentation, a 0h/2h/ RELATIVE (percent, %) delta change of 20% is suggested to distinguish patients with acute vs. chronic myocardial injury. There are multiple etiologies that can cause hs-cTnT increases above the 99th percentile (myocardial injury) other than acute myocardial infarction. Clinical context and careful clinical evaluation are critical for diagnosis and risk-stratification. The diagnosis of acute myocardial infarction requires a rising and/or falling pattern in hs-cTnT concentrations with at least one value above the sex-specific 99th percentile PLUS at least one of the following clinical criteria: ischemic symptoms, new or presumed new significant ST-T wave changes or new LBBB, development of pathological Q waves, imaging evidence of new loss of viable myocardium or new regional wall motion abnormality, or identification of intracoronary atherothrombosis or an acute angiographic culprit on coronary angiography. In appropriate low-risk patients with a non-ischemic electrocardiogram without active chest pain with a symptom onset >3-hours without recurrence, a single initial hs-cTnT<6 ng/L identifies patient with a very low risk in emergency department patient population. Wilian Bradley MD CHEMISTRY Final Resu lt [facility] [address] [place] [address] * CBC W PLT NO DIFF (01/12/2025 12:40 PM CDT) Only the most recent of3 resultswithin the time period is included. WHITE BLOOD COUNT 10.9 4.5 - 11.0 thou/cu mm 01/12/2025 12:51 PM [facility] RED BLOOD COUNT 4.30 4.30 - 5.90 mil/cu mm 01/12/2025 12:51 PM CDT [facility] HEMOGLOBIN 14.1 13.5 - 17.5 g/dL 01/12/2025 12:51 PM [facility] HEMATOCRIT 43.1 37.0 - 53.0 % 01/12/2025 12:51 PM [facility] MCV 100 80 - 100 fL 01/12/2025 12:51 PM [facility] MCH 32.8 26.0 - 34.0 pg 01/12/2025 12:51 PM CDT [facility] MCHC 32.7 32.0 - 36.0 g/dL 01/12/2025 12:51 PM CDT [facility] RDW 13.9 11.5 - 15.5 % 01/12/2025 12:51 PM CDT [facility] PLATELET COUNT 219 140 - 440 thou/cu mm 01/12/2025 12:51 PM CDT [facility] MPV 8.7 6.5 - 11.0 fL 01/12/2025 12:51 PM CDT [facility] Blood BLOOD SPECIMEN / Unknown Venipuncture / Unknown 01/12/2025 12:40 PM CDT 01/12/2025 12:43 PM CDT us Wilian Bradley MD HEMATOLOGY Final Resu lt [facility] [address] [place] [address] * D-DIMER,QUANTITATIVE (01/12/2025 12:40 PM CDT) D-DIMER,QUANTI TATIVE <0.22 See comment FEU mcg/mL 01/12/2025 12:53 PM CDT [facility] Blood BLOOD SPECIMEN / Unknown Venipuncture / Unknown 01/12/2025 12:40 PM CDT 01/12/2025 12:43 PM CDT Narrative [facility] - 01/12/2025 12:53 PM CDT The cut off value for exclusion of Deep Vein Thrombosis and / or Pulmonary Embolism is 0.50 FEU mcg/mL For patients greater than 50 years of age the upper limit is age dependent and was calculated with the formula: (PATIENT AGE x 0.01) FEU mcg/mL = Upper limit of normal range us Wilian Bradley MD HEMATOLOGY Final Resu lt [facility] [address] [place] [address] * (ABNORMAL) PRO-BNP (01/12/2025 12:40 PM CDT) Only the most recent of3 resultswithin the time period is included. PRO-BNP 501(H) <450 pg/mL 01/12/2025 1:15 PM CDT [facility] Blood BLOOD SPECIMEN / Unknown Venipuncture / Unknown 01/12/2025 12:40 PM CDT 01/12/2025 12:43 PM CDT [facility] - 01/12/2025 1:15 PM CDT The following cut-points have been suggested for the use of proBNP for the diagnostic evaluation of heart failure (HF) in patient with acute dyspnea. Patients with eGFR >= 60 Diagnosis (rule in CHF) <50 Years Old 450 pg/mL 50 - 75 Years Old 900 pg/mL >75 Years Old 1800 pg/mL Exclusion (rule out CHF) Age Independent 300 pg/mL A cutoff of 1200 pg/mL for patients with an eGFR <60 yields a diagnostic sensitivity of 89% and specificity of 72% for acute congestive heart failure. us Wilian Bradley MD SEND OUTS Final Resu lt [facility] [address] [place] [address] * (ABNORMAL) BASIC METABOLIC PANEL (01/12/2025 12:40 PM CDT) Only the most recent of4 resultswithin the time period is included. SODIUM 143 136 - 145 mmol/L 01/12/2025 1:11 PM CDT [facility] POTASSIUM 4.0 3.5 - 5.1 mmol/L 01/12/2025 1:11 PM [facility] CHLORIDE 102 98 - 107 mmol/L 01/12/2025 1:11 PM [facility] CO2,TOTAL 32(H) 22 - 29 mmol/L 01/12/2025 1:11 PM [facility] ANION GAP 9 5 - 18 01/12/2025 1:11 PM [facility] GLUCOSE 157(H) 70 - 99 mg/dL 01/12/2025 1:11 PM [facility] CALCIUM 8.6(L) 8.8 - 10.4 mg/dL 01/12/2025 1:11 PM [facility] Comment: Reference ranges for this test were updated on 06/03/2024 to reflect our healthy population more accurately. Reference range changes are not retroactively applied to results, but previous results using the same methodology can be interpreted in the context of the new reference range. BUN 22 8 - 23 mg/dL 01/12/2025 1:11 PM [facility] CREATININE 1.06 0.70 - 1.20 mg/dL 01/12/2025 1:11 PM [facility] BUN/CREAT RATIO 21(H) 10 - 20 1:11 PM [facility] eGFR 72(L) >90 mL/min/1. 73m2 01/12/2025 1:11 PM [facility] Comment:As of 2021, eG FR is calculated by the CKD-EPI creatinine equation without race adjustment. eGFR can be influenced by muscle mass, exercise, and diet. The reported eGFR is an estimation only and is only applicable if the renal function is stable. Blood BLOOD SPECIMEN / Unknown Venipuncture / Unknown 01/12/2025 12:40 PM CDT 01/12/2025 12:43 PM CDT us Wilian Bradley MD CHEMISTRY Final Resu lt [facility] [address] [place] [address] * SODIUM (01/09/2025 8:18 AM CDT) Only the most recent of3 resultswithin the time period is included. SODIUM 138 136 - 145 mmol/L 01/09/2025 8:55 AM CDT [facility] Blood BLOOD SPECIMEN / Unknown Butterfly / Unknown 01/09/2025 8:18 AM CDT 01/09/2025 8:28 AM CDT Sharan Preciado MD CHEMISTRY Final Result Performing Organization Address City/[facility]/ZIP Co de Phone Number [facility] [address] [place] [address], [place] * POTASSIUM (01/09/2025 8:18 AM CDT) Only the most recent of3 resultswithin the time period is included. POTASSIUM 4.2 3.5 - 5.1 mmol/L 01/09/2025 8:55 AM CDT [facility] Blood BLOOD SPECIMEN / Unknown Butterfly / Unknown 01/09/2025 8:18 AM CDT 01/09/2025 8:28 AM CDT Sharan Preciado MD CHEMISTRY Final Result Performing Organization Address City/[facility] Co de Phone Number [facility] [address] [place] [address], [place] * (ABNORMAL) CREATININE (01/09/2025 8:18 AM CDT) Only the most recent of3 resultswithin the time period is included. eGFR 87(L) >90 mL/min/1.7 3m2 01/09/2025 8:55 AM CDT [facility] Comment:As of 2021, eG FR is calculated by the CKD-EPI creatinine equation without race adjustment. eGFR can be influenced by muscle mass, exercise, and diet. The reported eGFR is an estimation only and is only applicable if the renal function is stable. CREATININE 0.90 0.70 - 1.20 mg/dL 01/09/2025 8:55 AM CDT [facility] Blood BLOOD SPECIMEN / Unknown Butterfly / Unknown 01/09/2025 8:18 AM CDT 01/09/2025 8:28 AM CDT Sharan Preciado MD CHEMISTRY Final Result Performing Organization Address [facility] Co de Phone Number [facility] [address] [address], [place] * (ABNORMAL) PROTIME-INR (01/09/2025 8:18 AM CDT) Only the most recent of8 resultswithin the time period is included. INR 1.4(H) <1.3 01/09/2025 8:47 AM CDT [facility] PROTIME 16.3(H) 10.6 - 12.4 sec 01/09/2025 8:47 AM CDT [facility] Blood BLOOD SPECIMEN / Unknown Butterfly / Unknown 01/09/2025 8:18 AM CDT 01/09/2025 8:28 AM CDT Narrative [facility] - 01/09/2025 8:47 AM CDT Therapeutic Range 2.0-3.0 for most anticoagulated patients 2.5-3.5 or 4.0 for high risk patients The INR is only used for patients on stable oral anticoagulant therapy. It makes no significant contribution to the diagnosis or treatment of patients whose Protime is prolonged for other reasons. INR results are increased when heparin levels exceed 1.0 U/mL, which corresponds to an aPTT >125 seconds if the patient is on UFH. us Sharan Preciado MD HEMATOLOGY Final Result Performing Organization Address [facility] Co de Phone Number [facility] [address] [place] [id number], [place] * SCAN-CARDIAC STRIP (01/09/2025 4:50 AM CDT) Scanner OTHER Final Result * (ABNORMAL) COMPREHENSIVE BLOOD GAS MIXED VENOUS (01/08/2025 6:03 PM CDT) O2 SATURATION, MEASURED, MIXED VENOUS 67(L) 70 - 75 % 01/08/2025 6:03 PM CDT [facility] PATIENT TEMPERATURE 37.0 Degrees C 01/08/2025 6:03 PM CDT [facility] HEMOGLOBIN,BLOOD GAS 15.5 13.5 - 17.5 g/dL 01/08/2025 6:03 PM CDT [facility] Blood BLOOD SPECIMEN / Unknown 01/08/2025 6:03 PM CDT 01/08/2025 6:03 PM CDT us Sharan Preciado MD CHEMISTRY Final Result [facility] [address] [place] [id number], * CVL CORONARY ANGIOGRAM POSS PCI (01/08/2025 5:52 PM CDT) Anatomical Region Laterality Modality Other 01/08/2025 5:52 PM CDT Narrative Transcriptions Servando Cerrato MD - 01/08/2025 6:44 PM CDT [facility] Cardiac Catheterization Report Name: DAT SUAREZ Event Date: 01/08/2025 17:52 Excellian ID #: [id number] FIGUEROA #: [id number] Patient Class: Inpatient Diagnostic Physician: SERVANDO CERRATO [facility] Referring Physician: Date: 1945 Gender: Male Age: 79 Summary/Conclusions PRESENTATION / INDICATIONS * Congestive Heart Failure - Highest NYHA Class w/in 2 - NYHA Class II * Query CAD and query severity VASCULAR ACCESS * Using ultrasound guidance and a percutaneous technique, the right commonfemoral artery was accessed. Ultrasound was used to confirm vesselpatency, localizing needle into the lumen of the vessel. An image wassaved for the medical record. * Using ultrasound guidance and a percutaneous technique, the rightfemoral vein was accessed. Ultrasound was used to confirm vessel patency,localizing needle into the lumen of the vessel. An image was saved for themedical record. DIAGNOSTIC - CORONARY * Right dominant coronary artery system DIAGNOSTIC - VALVES * Moderate aortic valve stenosis. HARRY 1.31, mean gradient 28 mmHg, very horizontal aorta/LV angle, picturessaved SPECIAL PROCEDURES * Right femoral arteriotomy was successfully closed utilizing a closuredevice, 6F Proglide DIAGNOSTIC SUMMARY (engagement only with AL1) ? The LMCA is free of significant disease. ? 40-50% stenosis in the Mid LAD, 50% in Diag 1 ? 80% calcified stenosis in the Distal LAD ? The Circumflex has a 50-60% lesion, non dominant ? The RCA is dominant and has mild luminal irregularities. LEFT VENTRICULAR FUNCTION ? LV Pressure = 155/14. HEMODYNAMICS ? RA=12; RV=33/6; PA=29/8, mean 16; PW=4; CI 2.71 (Gregorio) RECOMMENDATIONS & PLAN * Team discussion Consent & [place] Protocol The risks, benefits, and alternatives of the procedure were discussed withthe patient and written informed consent was obtained. [place] protocol was followed. TIME OUT conducted just prior tostarting procedure confirmed patient identity, site/side, procedure,patient position, and availability of correct equipment and implants (ifapplicable). Staff Name Title SERVANDO CERRATO Diagnostic Note Specialist Shawna Oliveira RN Joan Gutierrez CVT Scrub Wetter, Vicente CVT Monitor Procedures ? Ultrasound Guided Vascular Access ? Femoral Angio for Possible Closure Device ? Right Heart Catheterization ? Coronary Angiogram ? Left Heart Cath With Ventriculogram ? Femoral Closure Device Diagnostic Findings * Left Main Coronary Artery ? The LMCA is free of significant disease. * Left Anterior Descending ? 60% stenosis in the Mid LAD. ? 80% calcified stenosis in the Distal LAD. * Circumflex ? The Circumflex has mild luminal irregularities. * Right Coronary Artery ? The RCA is dominant and has mild luminal irregularities. Lesion Information Lesion # Vessel Segment Lesion Length Lesion Details Mid LAD Distal LAD Hemodynamics State: Baseline Pressures (mmHg) Site Systolic Diastolic End Diastolic A Wave V Wave Mean RA 6 4 3 RV 33 6 PA 29 8 16 PCW 7 6 4 AO 139 71 92 LV 155 4 14 AO 132 64 91 LV 164 2 13 AO 120 47 75 Valves Aortic Valve Mean Gradient: 27.76 Aortic Valve Area: 1.31 cm2 Oximetry AO: 90 % PA: 66.6 % Cardiac Output Estimated Gregorio Output: 5.63 l/min Estimated Gregorio Index: 2.71 l/min/m2 Resistances PVR: 170.34 PVR Index: 354.3 SVR: 1022.03 SVR Index: 2125.82 PVR/SVR: 0.17 Blood Flow Pulmonary (QP): 5.63 l/min Systemic (QS): 5.63 l/min Procedure Details Estimated Blood Loss: < 30 ml Specimen Collected: None Level of Sedation Achieved: Moderate Procedure Start: 17:52 Procedure End: 18:22 Procedure Time: 30 min Fluoroscopy Time: 10.3 min Cumulative Air Kerma: 336 mGy DAP: 2390 uGy/M2 Contrast: Omnipaque (low-osmolar), 45 ml Physiologic Data Hemoglobin: 14.5 g/dl Actual VO2: 265.7 Weight: 89.8 kg BSA: 2.08 m2 Vascular Access Time Access Sheath Size 17:54 Right Femoral Artery, sheath inserted 17:54 Right Femoral Vein, sheath inserted. Complications ? No Complications Medications Ordered and Administered Start Time Stop Time Medication Dose Units Route Ordered By Given By 17:49 Fentanyl 50 mcg IV Servando Cerrato Leesa RN 17:49 Versed 1 mg IV Servando Cerrato Leesa RN 17:53 1% Lidocaine 7 ml Subcut Servando Cerrato Mario 17:55 O2 2 l per min Nasal cannula Servando Cerrato Leesa RN I personally monitored the patient?s conscious sedation during theprocedure. Conscious sedation starts with the first sedation medication dose ofFentanyl or Versed and ends when the procedure is completed, the patientis stable for recovery status, and the physician or other qualified healthcare professional providing the sedation ends personal [id number] time with the patient. The medications listed above were verbally ordered by me and read back tome as documented above. Refer to the procedure log report for additional case details. electronically signed on 01/08/2025 6:44:58 PM with status of Final Servando Cerrato MD [facility] [address] [place] [address] (p) (f) us Provider Referring CV IMAGING Edited Result - Final * US CAROTID DUPLEX BILATERAL (01/08/2025 4:07 PM CDT) Anatomical Region Laterality Modality CAROTID, NECK Ultrasound Impressions 01/09/2025 4:28 PM CDT 1. Mild (less than 50 percent stenosis) atherosclerotic disease of the internal carotid arteries by velocity criteria. 2. Antegrade flow within the vertebral arteries. Alejandro Gardner D.O. Neuroradiologist [email or web address] PLR/djw / Narrative 01/09/2025 4:28 PM CDT Table formatting from the original result was not included. For Patients: As a result of the Cures Act, medical imaging exams and procedure reports are released immediately into your electronic medical record. You may view this report before your referring provider. If you have questions, please contact your health care provider. CAROTID DUPLEX ULTRASOUND BILATERAL, 01/08/2025 INDICATION: Pre-operative evaluation. History of hypertension and hyperlipidemia. TECHNIQUE: The carotid circulations and the vertebral arteries in the neck were examined with mian-scale ultrasound, color-flow and Doppler spectral analysis. Degrees of stenosis were determined using SRU 2002 Consensus Panel Criteria. COMPARISON: None relevant available. FINDINGS: There is intimal wall thickening. Mild calcified atherosclerotic plaque. Normal peak systolic velocities. Normal appearing carotid waveforms. Antegrade flow within the vertebral arteries. Multiphasic flow of the subclavian arteries. RIGHT PSV EDV ECA 82 8 DICA 90 30 QUENTIN 79 23 PICA 72 27 DCCA 81 13 MCCA - - PCCA 79 15 Vertebral Artery: Antegrade flow Subclavian Waveform: Multiphasic ICA/CCA Ratio: 1.0 LEFT PSV EDV ECA 75 5 DICA 90 26 QUENTIN 43 14 PICA 42 12 DCCA 78 14 MCCA - - PCCA 90 14 Vertebral Artery: Antegrade flow Subclavian Waveform: Multiphasic ICA/CCA Ratio: 0.6 us Ryanne PAEZ US Final Res ult * (ABNORMAL) CBC WITH AUTO DIFFERENTIAL (01/08/2025 6:13 AM CDT) Only the most recent of2 resultswithin the time period is included. WHITE BLOOD COUNT 9.7 4.5 - 11.0 thou/cu mm 01/08/2025 6:54 AM CDT [facility] RED BLOOD COUNT 4.63 4.30 - 5.90 mil/cu mm 01/08/2025 6:54 AM CDT [facility] HEMOGLOBIN 14.5 13.5 - 17.5 g/dL 01/08/2025 6:54 AM CDT [facility] HEMATOCRIT 44.3 37.0 - 53.0 % 01/08/2025 6:54 AM CDT [facility] MCV 96 80 - 100 fL 01/08/2025 6:54 AM CDT [facility] MCH 31.3 26.0 - 34.0 pg 01/08/2025 6:54 AM CDT [facility] MCHC 32.7 32.0 - 36.0 g/dL 01/08/2025 6:54 AM CDT [facility] RDW 13.5 11.5 - 15.5 % 01/08/2025 6:54 AM CDT [facility] PLATELET COUNT 199 140 - 440 thou/cu mm 01/08/2025 6:54 AM CDT [facility] MPV 8.7 6.5 - 11.0 fL 01/08/2025 6:54 AM CDT [facility] NRBC 0.0 % 01/08/2025 6:54 AM CDT [facility] ABS NRBC 0.0 thou /cu mm 01/08/2025 6:54 AM CDT [facility] % NEUT 58.7 % 01/08/2025 6:54 AM CDT [facility] % LYMPH 32.4 % 01/08/2025 6:54 AM CDT [facility] % MONO 8.2 % 01/08/2025 6:54 AM CDT [facility] % EOS 0.2 % 01/08/2025 6:54 AM CDT [facility] % BASO 0.1 % 01/08/2025 6:54 AM CDT [facility] % IMMATURE GRAN (METAS,MYELOS,WV OS) 0.4 % 01/08/2025 6:54 AM CDT [facility] ABSOLUTE NEUTROPHILS 5.7 1.7 - 7.0 thou/cu mm 01/08/2025 6:54 AM CDT [facility] ABSOLUTE LYMPHOCYTES 3.1(H) 0.9 - 2.9 thou/cu mm 01/08/2025 6:54 AM CDT [facility] ABSOLUTE MONOCYTES 0.8 <0.9 thou/cu mm 01/08/2025 6:54 AM CDT [facility] ABSOLUTE EOSINOPHILS 0.0 <0.5 thou/cu mm 01/08/2025 6:54 AM CDT [facility] ABSOLUTE BASOPHILS 0.0 <0.3 thou/cu mm 01/08/2025 6:54 AM CDT [facility] ABSOLUTE IMMATURE GRANULOCYTES(MET ,MYELOS,PROS) 0.0 <0.3 thou/cu mm 01/08/2025 6:54 AM CDT [facility] Blood BLOOD SPECIMEN / Unknown Venipuncture / Unknown 01/08/2025 6:13 AM CDT 01/08/2025 6:44 AM CDT us Sharan Preciado MD HEMATOLOGY Final Result [facility] [address] [place] [address], * SCAN-CARDIAC STRIP (01/08/2025 5:29 AM CDT) us Scanner OTHER Final Result * XR ORTHOPANTOGRAM (01/07/2025 4:42 PM CDT) Anatomical Region Laterality Modality PANOREX Digital Radiogra phy 01/08/2025 5:06 AM CDT Impressions 01/08/2025 5:06 AM CDT No significant dental caries or periapical abscesses. Dictated by Dolores Centeno MD @ Jan 08 2025 5:06AM (Electronically Signed) [email or web address] Narrative 01/08/2025 5:06 AM CDT For Patients: As a result of the Cures Act, medical imaging exams and procedure reports are released immediately into your electronic medical record. You may view this report before your referring provider. If you have questions, please contact your health care provider. INDICATION: : Pre-surgical dental clearance TECHNIQUE: One-view orthopantogram COMPARISON: None FINDINGS: No significant dental caries. No periapical abscesses. Multifocal dental amalgam. There are a couple of prior root canals. There are a few missing teeth. Procedure Note Dolores Centeno MD - 01/08/2025 For Patients: As a result of the Cures Act, medical imagingexams and procedure reports are released immediately into your electronicmedical record. You may view this report before your referring provider.If you have questions, please contact your health care provider. INDICATION: : Pre-surgical dental clearance TECHNIQUE: One-view orthopantogram COMPARISON: None FINDINGS: No significant dental caries. No periapical abscesses. Multifocal dental amalgam. There are a couple of prior root canals. There are a few missing teeth. IMPRESSION: No significant dental caries or periapical abscesses. Dictated by Dolores Centeno MD @ Jan 08 2025 5:06AM (Electronically Signed) [email or web address] Shailesh Rod MD GENERAL IMAGING Final Result * SCAN-CARDIAC STRIP (01/07/2025 10:28 AM CDT) us Scanner OTHER Final Result * CTA CHEST ABD PELVIS TAVR - CV DUAL READ (01/07/2025 7:57 AM CDT) Anatomical Region Laterality Modality CHEST, Abdomen, Pelvis Computed Tomography Narrative 01/07/2025 10:57 AM CDT Images from the original result were not included. STUDY: CTA CHEST, ABDOMEN, AND PELVIS TAVR Study date: 01/07/2025 Indication: 79 year-old male with aortic valvular stenosis has been referred for evaluation of aortic valve annulus, thoracic aorta anatomy, and arterial access anatomy to determine candidacy for transcatheter aortic valve replacement (TAVR) procedure. STUDY PARAMETERS: Scanner: Siemens Definition Force Contrast: 100 ml of Omnipaque 350 Scan protocol: Helical with dose modulation for heart image acquisition. High-pitch for chest, abdomen, and pelvis image acquisition. Radiation dose length product: 1960 for heart and chest, abdomen, pelvis imaging. Image quality: Good FINAL IMPRESSIONS: Heavily calcified trileaflet aortic valve with calcium score of 1928 AU and reduced leaflet excursion. Aortic annulus has a perimeter of 87 mm and an area of 593 mm2. No aortic annulus or LVOT calcification. Steep LV-Ao angle of 73 . Normal size and morphology of thoracic and abdominal aorta. Please see radiology report for noncardiovascular findings. COMMENT/RECOMMENDATION: Best fitting prothesis is the 29 mm Anisha 3 prosthesis with 9% oversized. Horizontal aorta precludes the use of the self-expanding Evolut prosthesis. Moderate to severe stenosis of mid LAD. Consider invasive coronary angiogram prior to aortic intervention. Transfemoral access is more favorable on the right due to mild tortuosity on the left. FINDINGS: Aortic valve annulus and outflow tract: Aortic valve: Heavily calcified trileaflet valve with reduced leaflet opening excursion. Aortic valve calcium score: 1928 AU Projection angle recommendations: For balloon expandable: BAHRAINI 21 CAUDAL 2 For self expandable: BAHRAINI 11 CAUDAL 26 Annular plane to horizontal angle: 73 Arterial access: Pelvic arteries (RIGHT): Common iliac artery: Patent. Internal iliac artery: Patent. External iliac artery: Patent. Common femoral artery: Patent. Pelvic arteries (LEFT): Common iliac artery: Patent. Internal iliac artery: Patent. External iliac artery: Patent. Common femoral artery: Patent. Other findings: Coronary arteries: Dominance: Right coronary artery Left main: Patent Left anterior descending artery: Moderate to severe stenosis of mid LAD. Left circumflex artery: Patent Right coronary artery: Nonobstructive atherosclerosis Left atrium: Normal contrast opacification Left ventricle: Normal LV systolic function visually. Mild hypokinesis of the mid to apical septum. Left ventricle septal ECV: 25% Pericardium: Normal without effusion. Thoracic aorta: Left-sided arch. Type 2 arch. Normal great artery branching pattern. No atheromatous disease in the ascending aorta and descending thoracic aorta. Arch does not exhibit acute angulation. Maximum cross-sectional dimensions are: Aortic sinus [id number] dimensions: 37 x 36 x 34 mm. Ascending aorta: 36 x 35 mm. Descending thoracic aorta: 25 x 25 mm. Abdominal aorta: Normal size and morphology. Mild atherosclerosis. Abdominal aorta branch arteries: Celiac artery: Patent. Superior mesenteric artery: Patent. Right renal artery: Patent. Left renal artery: Patent. Inferior mesenteric artery: Patent. FOR PATIENT: Results are automatically released to your [employer] account once available, in compliance with federal regulations. This means that you may see your results before your provider has had a chance to review them. Please allow 2-3 business days for your provider to comment on the results. Ame Mercedes MD Cardiac Imaging Fellow Toi Garza MD Pager # [phone] Fin al Result * CTA CHEST ABD PELVIS TAVR - RAD DUAL READ (01/07/2025 7:57 AM CDT) Anatomical Region Laterality Modality CHEST, Abdomen, Pelvis Computed Tomography 01/07/2025 9:38 AM CDT Impressions 01/07/2025 9:38 AM CDT 1. Please refer to separately dictated report for evaluation of cardiovascular structures. 2. Mild circumferential thickening of the mid to distal esophagus is likely inflammatory. Endoscopy correlation could be considered if not recently performed. 3. No acute intra-abdominal or pelvic abnormality. 4. Colonic diverticulosis. Dictated by Tyson Richard MD @ 01/07/2025 9:37:22 AM Please note that all CT scans at this facility use dose modulation, iterative reconstruction, and/or weight-based dosing when appropriate to reduce radiation dose to as low as reasonably achievable. Dictated by: Tyson Richard MD @ 01/07/2025 09:38:32 (Electronically Signed) Narrative 01/07/2025 9:38 AM CDT For Patients: As a result of the Cures Act, medical imaging exams and procedure reports are released immediately into your electronic medical record. You may view this report before your referring provider. If you have questions, please contact your health care provider. THIS IS THE RADIOLOGY OVER READ REPORT OF A DUAL READ STUDY. READ THE SEPARATE CARDIOLOGY REPORT FOR CARDIOVASCULAR FINDINGS. REPORTS MAY BE FINALIZED AT DIFFERENT TIMES. COMPARISON: CT chest 08/09/2023. CT abdomen and pelvis 11/27/2023. TECHNIQUE: Please see cardiology report for technical information. This exam is being performed in conjunction with the services provided by the [facility] ([facility]). Please note that all CT scans at this facility use dose modulation, iterative reconstruction and/or weight-based dosing when appropriate to reduce radiation dose to as low as reasonably achievable. INDICATION: Cardiac over-read. FINDINGS: Chest: No pleural or pericardial effusions. No pathologic lymphadenopathy. Mild circumferential thickening of the mid to distal esophagus. Soft tissues of the thoracic wall are unremarkable. No pneumothorax. Mild secretions in the distal trachea and left mainstem bronchus. Bibasilar atelectasis, [id number]-[id number]-right. Lungs otherwise clear. Abdomen: Liver, spleen, pancreas and adrenal glands are unremarkable. Bilateral renal cysts are unchanged. No hydronephrosis or suspicious renal lesion. Cholecystectomy. No biliary ductal dilatation. Distal colonic diverticulosis without evidence of acute diverticulitis. Appendectomy and midline surgical anastomosis, unchanged. No pathologic lymphadenopathy or free fluid. Pelvis: Prostate and bladder as imaged are unremarkable. Fecal loading of the rectum again noted but less extensive the not previously seen. No acute inflammatory change in the pelvic GI tract. No pathologic lymphadenopathy or free fluid. Degenerative changes spine and pelvis. No acute or suspicious osseous abnormality. Procedure Note Tyson Richard, - 01/07/2025 For Patients: As a result of the Cures Act, medical imagingexams and procedure reports are released immediately into your electronicmedical record. You may view this report before your referring provider.If you have questions, please contact your health care provider. THIS IS THE RADIOLOGY OVER READ REPORT OF A DUAL READ STUDY. READ THESEPARATE CARDIOLOGY REPORT FOR CARDIOVASCULAR FINDINGS. REPORTS MAY BEFINALIZED AT DIFFERENT TIMES. COMPARISON: CT chest 08/09/2023. CT abdomen and pelvis 11/27/2023. TECHNIQUE: Please see cardiology report for technical information. This exam is being performed in conjunction with the services provided bythe [facility] ([facility]). Please note that all CT scans at this facility use dose modulation,iterative reconstruction and/or weight-based dosing when appropriate toreduce radiation dose to as low as reasonably achievable. INDICATION: Cardiac over-read. FINDINGS: Chest: No pleural or pericardial effusions. No pathologic lymphadenopathy. Mildcircumferential thickening of the mid to distal esophagus. Soft tissues ofthe thoracic wall are unremarkable. No pneumothorax. Mild secretions in the distal trachea and left mainstembronchus. Bibasilar atelectasis, [id number]-[id number]-ymgb-right. Lungs otherwiseclear. Abdomen: Liver, spleen, pancreas and adrenal glands are unremarkable. Bilateralrenal cysts are unchanged. No hydronephrosis or suspicious renal lesion.Cholecystectomy. No biliary ductal dilatation. Distal colonic diverticulosis without evidence of acute diverticulitis.Appendectomy and midline surgical anastomosis, unchanged. No pathologiclymphadenopathy or free fluid. Pelvis: Prostate and bladder as imaged are unremarkable. Fecal loading of therectum again noted but less extensive the not previously seen. No acuteinflammatory change in the pelvic GI tract. No pathologic lymphadenopathyor free fluid. Degenerative changes spine and pelvis. No acute or suspicious osseousabnormality. IMPRESSION: 1. Please refer to separately dictated report for evaluation ofcardiovascular structures. 2. Mild circumferential thickening of the mid to distal esophagus islikely inflammatory. Endoscopy correlation could be considered if notrecently performed. 3. No acute intra-abdominal or pelvic abnormality. 4. Colonic diverticulosis. Dictated by Tyson Richard MD @ 01/07/2025 9:37:22 AM Please note that all CT scans at this facility use dose modulation,iterative reconstruction, and/or weight-based dosing when appropriate toreduce radiation dose to as low as reasonably achievable. Dictated by: Tyson Richard MD @ 01/07/2025 09:38:32 (Electronically Signed) Alla PAEZ CT Fin al Result * SCAN-CARDIAC STRIP (01/07/2025 1:10 AM CDT) us Scanner OTHER Final Result * SCAN-CARDIAC STRIP (01/06/2025 4:21 PM CDT) us Scanner OTHER Final Result * SCAN-CARDIAC STRIP (01/06/2025 9:21 AM CDT) us Scanner OTHER Final Result * MAGNESIUM (01/06/2025 5:48 AM CDT) Only the most recent of2 resultswithin the time period is included. MAGNESIUM 2.3 1.6 - 2.4 mg/dL 01/06/2025 7:45 AM CDT [facility] Blood BLOOD SPECIMEN / Unknown Butterfly / Unknown 01/06/2025 5:48 AM CDT 01/06/2025 6:01 AM CDT us Zoraida Russo RN CHEMISTRY Final Resul t [facility] [address] [place] [address] * LDL CHOLESTEROL,DIRECT (01/06/2025 5:48 AM CDT) LDL CHOLESTEROL,DI RECT 124 mg/dL 01/07/2025 12:54 PM CDT [facility] PROVIDER ORDERED STATUS RANDOM 01/07/2025 12:54 PM CDT [facility] Blood BLOOD SPECIMEN / Unknown Butterfly / Unknown 01/06/2025 5:48 AM CDT 01/06/2025 6:01 AM CDT Narrative [facility] - 01/07/2025 12:54 PM CDT Optimal <100 mg/dl Near Optimal 100-129 mg/dl Borderline High 130-159 mg/dl High 160-189 mg/dl Very High >=190 mg/dl us Alla Nguyen PA CHEMISTRY Fin al Result [facility] [address] [address], [facility] [address] [place] [address] * ECHO TTE COMPLETE W CONTRAST (01/05/2025 6:17 PM CDT) AORTIC VALVE MEAN PG 26 mmHg EJECTION FRACTION 74 % LVEDD 3.8 cm EJECTION FRACTION 55 - 60% Anatomical Region Laterality Modality Other 01/05/2025 4:57 PM CDT Narrative 01/06/2025 8:00 AM CDT ECHOCARDIOGRAM DAT SUAREZ : 1945 79 years Study Date: 01/05/2025 4:57:32 PM Gender: M BP: 160/87 mmHg Height: 177.80 cm BSA: 2.10 m Weight: 92.08 kg Tech: OTTONIEL Referring MD: YEFRI ROSENTHAL Site: [facility] ([place]) Reading Location: Mobile-IP Patient Location: Inpatient. Procedure: 2D w/ Contrast, Color Doppler and Spectral Doppler. Indication for study: CHF Cardiac Rhythm: Regular.Study quality: Fair. Final Impressions: 1. Normal LV size, borderline wall thickness, normal global systolic function with an estimated EF of 55 - 60%. 2. The aortic valve is calcified, severe stenosis and no regurgitation. The aortic valve peak velocity is 3.3 m/s, the peak gradient is 42 mmHg, and the mean gradient is 26 mmHg. The aortic valve area is 0.9 cm with a dimensionless index of 0.26. The stroke volume index is 34 ml/m . 3. Mid anterior septum segment, mid septum segment, and basal septum segment are hypokinetic. 4. Right ventricular cavity size is normal, global systolic RV function is normal. 5. The mitral valve is normal, trace mitral regurgitation. 6. Tricuspid valve is normal, trace tricuspid regurgitation. 7. Echo contrast was administered to enhance visualization of all left ventricular segments. Chamber Sizes and Function Normal left ventricular size, borderline wall thickness, normal global systolic function with an estimated EF of 55 - 60%. Regional wall motion assessment not well-visualized. Left atrial size is normal. Right ventricular cavity size is normal, global systolic RV function is normal. The right atrium is normal. Right atrial volume index is 14 ml/m . Right atrial area is 13 cm . The pulmonary artery is of normal size and origin. The sinus of Valsalva is normal sized. The ascending aorta is normal sized. The mid anterior septum segment, mid septum segment, and basal septum segment are hypokinetic. Valves, RV Pressures and Diastolic Function The aortic valve is calcified, severe stenosis and no regurgitation. The mitral valve is normal in structure, trace mitral regurgitation. Spectral Doppler shows Grade 1 pattern of LV diastolic filling. The tricuspid valve is normal in structure, trace tricuspid regurgitation. The pulmonic valve is not well visualized. No pulmonary regurgitation. Masses, Effusion, Shunts There is no pericardial effusion. The inferior vena cava is not well visualized, respiratory size variation not well visualized. No left to right shunting was detected by limited color flow Doppler interrogation of the interatrial septum. MEASUREMENTS AND CALCULATIONS 2-D Measurements and LV Function: LVID (d) 3.8 cm LV FS% (2D) 33 % LVID (s) 2.6 cm LVOT diameter 2.1 cm IVS (d) 1.2 cm HR 65 bpm LVPW (d) 1.1 cm LA Vol index 28 ml/m2 Ao Sinus 3.5 cm RA Vol index 14 ml/m2 Ao Sinus ULN 4.2 cm * RA area 13 cm Asc Ao 3.8 cm RV Basal Diam 3.4 cm Asc Ao ULN 4.4 cm * RV Mid Diam 2.6 cm LA 4.5 cm * Input BSA outside of range, reported values correspond to BSA = 2.1 Diastology: Mitral Tissue Doppler E Peak 0.7 m/s e', Septum 0.06 m/s A Peak 0.9 m/s e', Lateral 0.08 m/s E/A 0.7 E/e' Average 9.39 DT 269 msec Aortic Valve: Vmax 3.3 m/s HARRY (V) 0.83 cm VTI 0.80 m HARRY (I) 0.89 cm LVOT V max 0.8 m/s Max PG 42 mmHg LVOT VTI 0.20 m Mean PG 26 mmHg SV 71 ml Dim Index 0.26 SV index 34 ml/m CO 4.6 l/min CI 2.2 l/min/m Mitral Valve: MVA 2.8 cm MV P 1/2 78 msec MV Mean G 1 mmHg Tricuspid Valve and estimated PA pressures: TAPSE 2.4 cm TV Annulus 2.9 cm Contrast documentation: 4 ml diluted Definity, lot #[id number], [facility]# [id number] was administered peripherally to enhance visualization of all left ventricular segments. . This study was interpreted by an [facility] accredited facility. CC: Mikala Chung. Final Procedure Note Hector Reis MD - 01/06/2025 ECHOCARDIOGRAM DAT SUAREZ : 1945 79 years Study Date: 01/05/2025 4:57:32 PM Gender: M BP: 160/87 mmHg Height: 177.80 cm BSA: 2.10 m Weight: 92.08 kg Tech: OTTONIEL Referring MD: YEFRI ROSENTHAL Site: [facility] Reading Location: Mobile- Patient Location: Inpatient. Procedure: 2D w/ Contrast, Color Doppler and Spectral Doppler. Indication for study: CHF Cardiac Rhythm: Regular.Study quality: Fair. Final Impressions: 1. Normal LV size, borderline wall thickness, normal global systolicfunction with an estimated EF of 55 - 60%. 2. The aortic valve is calcified, severe stenosis and no regurgitation.The aortic valve peak velocity is 3.3 m/s, the peak gradient is 42 mmHg,and the mean gradient is 26 mmHg. The aortic valve area is 0.9 cm with adimensionless index of 0.26. The stroke volume index is 34 ml/m . 3. Mid anterior septum segment, mid septum segment, and basal septumsegment are hypokinetic. 4. Right ventricular cavity size is normal, global systolic RV functionis normal. 5. The mitral valve is normal, trace mitral regurgitation. 6. Tricuspid valve is normal, trace tricuspid regurgitation. 7. Echo contrast was administered to enhance visualization of all leftventricular segments. Chamber Sizes and Function Normal left ventricular size, borderline wall thickness, normal globalsystolic function with an estimated EF of 55 - 60%. Regional wall motionassessment not well-visualized. Left atrial size is normal. Rightventricular cavity size is normal, global systolic RV function is normal.The right atrium is normal. Right atrial volume index is 14 ml/m . Rightatrial area is 13 cm . The pulmonary artery is of normal size and origin.The sinus of Valsalva is normal sized. The ascending aorta is normalsized. The mid anterior septum segment, mid septum segment, and basalseptum segment are hypokinetic. Valves, RV Pressures and Diastolic Function The aortic valve is calcified, severe stenosis and no regurgitation. Themitral valve is normal in structure, trace mitral regurgitation. SpectralDoppler shows Grade 1 pattern of LV diastolic filling. The tricuspid valveis normal in structure, trace tricuspid regurgitation. The pulmonic valveis not well visualized. No pulmonary regurgitation. Masses, Effusion, Shunts There is no pericardial effusion. The inferior vena cava is not wellvisualized, respiratory size variation not well visualized. No left toright shunting was detected by limited color flow Doppler interrogation ofthe interatrial septum. MEASUREMENTS AND CALCULATIONS 2-D Measurements and LV Function: LVID (d) 3.8 cm LV FS% (2D) 33% LVID (s) 2.6 cm LVOT diameter2.1 cm IVS (d) 1.2 cm HR 65bpm LVPW (d) 1.1 cm LA Vol index 28ml/m2 Ao Sinus 3.5 cm RA Vol index 14ml/m2 Ao Sinus ULN 4.2 cm * RA area 13cm Asc Ao 3.8 cm RV Basal Diam3.4 cm Asc Ao ULN 4.4 cm * RV Mid Diam2.6 cm LA 4.5 cm * Input BSA outside of range, reported values correspond to BSA = 2.1 Diastology: Mitral Tissue Doppler E Peak 0.7 m/s e', Septum 0.06 m/s A Peak 0.9 m/s e', Lateral 0.08 m/s E/A 0.7 E/e' Average 9.39 DT 269 msec Aortic Valve: Vmax 3.3 m/s HARRY (V) 0.83 cm VTI 0.80 m HARRY (I) 0.89 cm LVOT V max 0.8 m/s Max PG 42 mmHg LVOT VTI 0.20 m Mean PG 26 mmHg SV 71 ml Dim Index 0.26 SV index 34 ml/m CO 4.6 l/min CI 2.2 l/min/m Mitral Valve: MVA 2.8 cm MV P 1/2 78 msec MV Mean G 1 mmHg Tricuspid Valve and estimated PA pressures: TAPSE 2.4 cm TV Annulus 2.9 cm Contrast documentation: 4 ml diluted Definity, lot #[id number], [facility]#[id number] was administered peripherally to enhance visualization of allleft ventricular segments. . This study was interpreted by an [facility] accredited facility. CC: Mikala Chung. Final us Yefri Rosenthal NP ECHO ORD Fin al Result * SCAN-CARDIAC STRIP (01/05/2025 4:20 PM CDT) us Scanner OTHER Final Result * XR CHEST 2 VIEWS PA AND LATERAL (01/05/2025 1:46 PM CDT) Only the most recent of2 resultswithin the time period is included. Anatomical Region Laterality Modality CHEST, THORAX, Lung, HEART Digit al Radiography 01/05/2025 1:52 PM CDT Impressions 01/05/2025 1:52 PM CDT Low lung volumes. Mild bandlike bibasilar opacities which likely reflect atelectasis. Lungs otherwise clear. Dictated by Maco Bennett MD @ 01/05/2025 1:52:54 PM (Electronically Signed) Narrative 01/05/2025 1:52 PM CDT For Patients: As a result of the Century Cures Act, medical imaging exams and procedure reports are released immediately into your electronic medical record. You may view this report before your referring provider. If you have questions, please contact your health care provider. INDICATION: Shortness of breath. TECHNIQUE: Chest 2 views. COMPARISON: None. FINDINGS: Cardiovascular and mediastinum: Heart size and vasculature are normal in caliber and appearance. Lungs and pleural spaces: Low lung volumes. Mild bandlike bibasilar opacities which likely reflect atelectasis. Lungs otherwise clear. Bones and soft tissues: Thoracolumbar spondylosis. Procedure Note Mcao Bennett MD - 01/05/2025 For Patients: As a result of the Cures Act, medical imagingexams and procedure reports are released immediately into your electronicmedical record. You may view this report before your referring provider.If you have questions, please contact your health care provider. INDICATION: Shortness of breath. TECHNIQUE: Chest 2 views. COMPARISON: None. FINDINGS: Cardiovascular and mediastinum: Heart size and vasculature are normal incaliber and appearance. Lungs and pleural spaces: Low lung volumes. Mild bandlike bibasilaropacities which likely reflect atelectasis. Lungs otherwise clear. Bones and soft tissues: Thoracolumbar spondylosis. IMPRESSION: Low lung volumes. Mild bandlike bibasilar opacities which likely reflectatelectasis. Lungs otherwise clear. Dictated by Maco Bennett MD @ 01/05/2025 1:52:54 PM (Electronically Signed) us Maverick Crowley MD GENERAL IMAGING Final Result * HEMOGLOBIN A1C (01/05/2025 1:15 PM CDT) Only the most recent of2 resultswithin the time period is included. HEMOGLOBIN A1C SCREENING 6.4 <=6.4 % 01/06/2025 8:46 AM CDT [facility] Blood BLOOD SPECIMEN / Unknown IV Start / Unknown 01/05/2025 1:15 PM CDT 01/05/2025 1:22 PM CDT Narrative [facility] - 01/06/2025 8:46 AM CDT (<5.7%) Normal (5.7% to 6.4%) Indicates prediabetes (>=6.5%) Confirms diabetes Falsely low levels may be seen with: Recent Transfusion, Recent Significant Blood Loss, Hemolytic Diseases, or Falsely elevated levels may be seen with: Untreated Anemias, Splenectomy us Brittney Saldana MD [facility] Final Result [facility] [address] [place] [id number] * EXTRA TUBE BLUE (01/05/2025 1:15 PM CDT) Blood BLOOD SPECIMEN / Unknown IV Start / Unknown 01/05/2025 1:15 PM CDT 01/05/2025 1:32 PM CDT us Doctor Unknown LABORATORY Final Result [facility] [address] [place] [address] * PROCALCITONIN (01/05/2025 1:15 PM CDT) PROCALCITONIN 0.05 ng/ml 01/05/2025 2:00 PM CDT [facility] Blood BLOOD SPECIMEN / Unknown IV Start / Unknown 01/05/2025 1:15 PM CDT 01/05/2025 1:34 PM CDT Narrative [facility] - 01/05/2025 2:00 PM CDT Procalcitonin for initial assessment of Lower Respiratory Tract Infection: Results Interpretation <0.10 ng/mL Antibiotic therapy strongly discoraged. Indicates absent of bacterial infection. * 0.10 - 0.25 ng/mL Antibiotic therapy discouraged. Bacterial infection unlikely. * 0.26 - 0.50 ng/mL Antibiotic therapy encouraged. Bacterial infection possible. >0.50 ng/mL Antibiotic therapy strongly encouraged. Suggestive of presence of bacterial infection. *Antibiotic therapy should be considered regardless of PCT result if the patient is clinically unstable, is at high risk for adverse outcome, has strong evidence of bacterial pathogen, or the clinical context indicates antibiotic therapy is warranted. If antibiotics are withheld, reassess if symptoms persist/worsen and/or repeat PCT measurement within 6-24 hours. In order to assess treatment success and to support a decision to discontinue antibiotic therapy, follow up samples should be tested once every 1-2 days, based upon physician discretion taking into account patient's evolution and progress. Procalcitonin for initial assessment of severe sepsis risk: Results Interpretation <0.5 ng/ml A PCT level below 0.5 ng/ml on the first day of ICU admission is associated with a low risk for progression to severe sepsis and/or septic shock. > 2.0 ng/mL A PCT level above 2.0 ng/mL on the first day of ICU admission is associated with a high risk for progression to severe sepsis and/or septic shock. Note: Concentrations < 0.5 ng/mL do not exclude an infection, on account of localized infections (without systemic signs) which can be associated with such low concentrations, or a systemic infection in its initial stages(< 6 hours). Furthermore, increased procalcitonin can occur without infection. PCT concentrations between 0.5 and 2.0 ng/mL should be interpreted taking into account the patient's history. It is recommended to retest PCT within 6-24 hours if any concentrations < 2 ng/mL are obtained. Maverick Crowley MD SEND OUTS Final Result Performing Organization Address [facility] de Phone Number [facility] [address] [place] [address] * TSH (01/05/2025 1:15 PM CDT) [facility] TSH 2.89 0.27 - 4.20 uIU/mL 01/05/2025 2:10 PM CDT [facility] Blood BLOOD SPECIMEN / Unknown IV Start / Unknown 01/05/2025 1:15 PM CDT 01/05/2025 1:22 PM CDT [facility] - 01/05/2025 2:10 PM CDT In Adults, TSH values between 5.00 and 10.00 uIU/ml do not necessarily indicate the presence of Hypothyroidism. Correlation with clinical findings such as presence of goiter and/or Thyroperoxidase (TPO) Antibody may be helpful. For more information please refer to ADA 2004; 291: 228-238. Maverick Crowley MD CHEMISTRY Final Result Performing Organization Address [facility] de Phone Number [facility] [address] [place] [address] * (ABNORMAL) LIPID PANEL (01/05/2025 1:15 PM CDT) CHOLESTEROL,TOTAL 296(H) 100 - 199 mg/dL 01/06/2025 12:40 PM CDT [facility] Comment: Cholesterol, Total Reference Ranges Desirable <200 mg/dL Borderline 200-239 mg/dL High >=240 mg/dL TRIGLYCERIDES 831(H) <150 mg/dL 01/06/2025 12:40 PM CDT [facility] HDL CHOLESTEROL 27(L) >40 mg/dL 12:40 PM CDT [facility] NON-HDL CHOLESTEROL 269(H) <145 mg/dl 01/06/2025 12:40 PM CDT [facility] CHOL/HDL RATIO 10.96(H) <4.50 01/06/2025 12:40 PM CDT [facility] LDL CHOLESTEROL 12:40 PM CDT [facility] Comment:Invalid LDL when Tri g >400. VLDL CHOLESTEROL COMMENT 01/06/2025 12:40 PM CDT [facility] Comment:Unable to calculate VLDL. PROVIDER ORDERED STATUS RANDOM 01/06/2025 12:40 PM CDT [facility] Blood BLOOD SPECIMEN / Unknown IV Start / Unknown 01/05/2025 1:15 PM CDT 01/05/2025 1:22 PM CDT Brittney PERKINS Final Result [facility] [address] [place] [address], * EXTRA TUBE MINA (12/12/2024 3:23 PM CDT) Blood BLOOD SPECIMEN / Unknown Add On / Unknown 12/12/2024 3:23 PM CDT 12/12/2024 3:23 PM CDT Caroline Rice [place] LABORATORY F inal Result [facility] [address] [place] [address] * SCAN-OPERATIVE/PROCEDURE REPORT (12/09/2024 12:00 AM CDT) us Scanner OTHER Final Result * AMB EPIDURAL STEROID INJECTION (11/25/2024 12:00 AM CDT) us Sunny Blanco MD NEUROLOGY ORD Final Resu lt * SCAN-DIAGNOSTIC REPORT (11/10/2024 12:00 AM CDT) us Scanner OTHER Final Result * MR SPINE LUMBAR WO (10/24/2024 12:31 PM CDT) Anatomical Region Laterality Modality Spine, LUMBAR SPINE Magnetic Res onance 10/24/2024 1:28 PM CDT Impressions 10/24/2024 1:28 PM CDT 1. No acute compression fracture or marrow replacing process. T12 minimal chronic anterior wedging and a L1 superior endplate deformity without significant height loss at either level. Stable/chronic. 2. At L5-S1, grade 1 anterolisthesis from bilateral L5 pars defects. Moderate bilateral neural foraminal stenosis with mild compression of the exiting L5 nerve roots. The degree of listhesis has minimally progressed. 3. Widespread spondylosis at the remaining levels without high-grade spinal canal/neural foraminal stenosis or neural compression. 4. Multilevel advanced disc degeneration. Type 1 Modic changes most prominent at the L1-2 level. Dictated by Oscar Henderson MD @ 10/24/2024 1:28:46 PM (Electronically Signed) Narrative 10/24/2024 1:28 PM CDT For Patients: As a result of the 21st Century Cures Act, medical imaging exams and procedure reports are released immediately into your electronic medical record. You may view this report before your referring provider. If you have questions, please contact your health care provider. INDICATION: Lumbar compression fracture. TECHNIQUE : Lumbar spine MRI without contrast. COMPARISON: Lumbar spine MRI from 09/13/2022. FINDINGS : Five lumbar type vertebral bodies, with the last fully formed disc space designated as L5-S1. Accentuated lumbar lordosis. Mild levoconvex lumbar scoliosis. No recent compression fracture or marrow replacing process. Minimal chronic anterior wedging at T12. L1 superior endplate fracture with minimal vertebral body height loss. Stable/chronic. Lower cord/conus signal is normal. The conus terminates at a normal location. No intradural lesion. Multiple left-sided renal cysts. Discs/Endplates: Advanced disc height loss, disc desiccation and degenerative endplate erosions at T12-L1 through L5-S1. Moderate type 1 Modic changes at L1-2 on the right. Trace type 1 Modic changes L2-3 and L5-S1. Findings at individual levels as follows: T11-12: Trace retrolisthesis. Minimal disc bulge. No spinal canal or neural foraminal stenosis. T12-L1: 4 millimeters retrolisthesis. Mild disc bulge with osteophytic ridging. Bilateral low-grade facet arthrosis. Mild bilateral neural foraminal stenosis. No spinal canal stenosis. L1-2: Mild disc bulge. Bilateral low-grade facet arthrosis. No spinal canal or neural foraminal stenosis. L2-3: Moderate disc bulge with overlying osteophytic ridging, asymmetric to the right. Bilateral facet arthrosis. Mild right neural foraminal stenosis. No left neural foraminal stenosis or spinal canal stenosis. L3-4: Mild disc bulge. Bilateral facet arthrosis. Mild bilateral neural foraminal stenosis. No spinal canal stenosis. L4-5: Trace retrolisthesis. Moderate disc bulge with overlying osteophytic ridging, asymmetric to the left. Bilateral facet arthrosis. Mild bilateral neural foraminal stenosis. No spinal canal stenosis. L5-S1: 6 millimeters grade 1 anterolisthesis. Bilateral L5 pars defects. Moderate disc bulge with osteophytic ridging. Moderate bilateral neural foraminal stenosis with mild compression of the exiting L5 nerve roots, more notable on the right. Imaged SI joints: Minimal arthrosis. Imaged sacrum: Within normal limits. Procedure Note Oscar Henderson MD - 10/24/2024 For Patients: As a result of the Cures Act, medical imagingexams and procedure reports are released immediately into your electronicmedical record. You may view this report before your referring provider.If you have questions, please contact your health care provider. INDICATION: Lumbar compression fracture. TECHNIQUE : Lumbar spine MRI without contrast. COMPARISON: Lumbar spine MRI from 09/13/2022. FINDINGS : Five lumbar type vertebral bodies, with the last fully formed disc spacedesignated as L5-S1. Accentuated lumbar lordosis. Mild levoconvex lumbarscoliosis. No recent compression fracture or marrow replacing process.Minimal chronic anterior wedging at T12. L1 superior endplate fracturewith minimal vertebral body height loss. Stable/chronic. Lower cord/conussignal is normal. The conus terminates at a normal location. No intradurallesion. Multiple left-sided renal cysts. Discs/Endplates: Advanced disc height loss, disc desiccation anddegenerative endplate erosions at T12-L1 through L5-S1. Moderate type 1Modic changes at L1-2 on the right. Trace type 1 Modic changes L2-3 andL5-S1. Findings at individual levels as follows: T11-12: Trace retrolisthesis. Minimal disc bulge. No spinal canal orneural foraminal stenosis. T12-L1: 4 millimeters retrolisthesis. Mild disc bulge with osteophyticridging. Bilateral low-grade facet arthrosis. Mild bilateral neuralforaminal stenosis. No spinal canal stenosis. L1-2: Mild disc bulge. Bilateral low-grade facet arthrosis. No spinalcanal or neural foraminal stenosis. L2-3: Moderate disc bulge with overlying osteophytic ridging, asymmetricto the right. Bilateral facet arthrosis. Mild right neural foraminalstenosis. No left neural foraminal stenosis or spinal canal stenosis. L3-4: Mild disc bulge. Bilateral facet arthrosis. Mild bilateral neuralforaminal stenosis. No spinal canal stenosis. L4-5: Trace retrolisthesis. Moderate disc bulge with overlying osteophyticridging, asymmetric to the left. Bilateral facet arthrosis. Mild bilateralneural foraminal stenosis. No spinal canal stenosis. L5-S1: 6 millimeters grade 1 anterolisthesis. Bilateral L5 pars defects.Moderate disc bulge with osteophytic ridging. Moderate bilateral neuralforaminal stenosis with mild compression of the exiting L5 nerve roots,more notable on the right. Imaged SI joints: Minimal arthrosis. Imaged sacrum: Within normal limits. IMPRESSION: 1. No acute compression fracture or marrow replacing process. T12 minimalchronic anterior wedging and a L1 superior endplate deformity withoutsignificant height loss at either level. Stable/chronic. 2. At L5-S1, grade 1 anterolisthesis from bilateral L5 pars defects.Moderate bilateral neural foraminal stenosis with mild compression of theexiting L5 nerve roots. The degree of listhesis has minimally progressed. 3. Widespread spondylosis at the remaining levels without high-gradespinal canal/neural foraminal stenosis or neural compression. 4. Multilevel advanced disc degeneration. Type 1 Modic changes mostprominent at the L1-2 level. Dictated by Oscar Henderson MD @ 10/24/2024 1:28:46 PM (Electronically Signed) us Freya Singh MD MR Final Result * XR SPINE LUMBAR 2 VIEWS (10/22/2024 10:21 AM CDT) Anatomical Region Laterality Modality LUMBAR SPINE Computed Radiogr aphy 10/23/2024 7:52 AM CDT Narrative 10/23/2024 7:52 AM CDT For Patients: As a result of the Cures Act, medical imaging exams and procedure reports are released immediately into your electronic medical record. You may view this report before your referring provider. If you have questions, please contact your health care provider. INDICATION: Lumbar spondylosis. TECHNIQUE: Lumbar spine 3 view. COMPARISON: CT chest October 2023 FINDINGS/IMPRESSION: No acute vertebral compression fracture. Transitional anatomy with lumbarization of S1. Degenerative levocurvature of the lumbar spine, more pronounced than previous CT with the apex at L3-4 level. Minimal anterolisthesis of S1 over S2 is similar to previous CT with bilateral S1 pars defect. There is chronic superior endplate compression of L2. Minimal chronic anterior wedging compression of T11 and T12. Multilevel moderate degenerative changes of lumbar spine with reduction of intervertebral disc height, anterior spurring, uncovertebral and facet arthropathy. Dictated by Maddie Valencia MD @ 10/23/2024 7:52:37 AM (Electronically Signed) Procedure Note Maddie Valencia MD - 10/23/2024 For Patients: As a result of the Cures Act, medical imagingexams and procedure reports are released immediately into your electronicmedical record. You may view this report before your referring provider.If you have questions, please contact your health care provider. INDICATION: Lumbar spondylosis. TECHNIQUE: Lumbar spine 3 view. COMPARISON: CT chest October 2023 FINDINGS/IMPRESSION: No acute vertebral compression fracture. Transitional anatomy with lumbarization of S1. Degenerative levocurvatureof the lumbar spine, more pronounced than previous CT with the apex atL3-4 level. Minimal anterolisthesis of S1 over S2 is similar to previousCT with bilateral S1 pars defect. There is chronic superior endplate compression of L2. Minimal chronicanterior wedging compression of T11 and T12. Multilevel moderate degenerative changes of lumbar spine with reduction ofintervertebral disc height, anterior spurring, uncovertebral and facetarthropathy. Dictated by Maddie Valencia MD @ 10/23/2024 7:52:37 AM (Electronically Signed) us Sunny Blanco MD GENERAL IMAGING Final Resu lt * ANTI HCV [[id number]] (07/15/2018 4:30 PM ADMINISTRATION VICE PRESIDENT) HEPATITIS C ANTIBODY Non-React jael Non-React jael 07/16/2018 8:11 PM ADMINISTRATION VICE PRESIDENT [employer] [facility] Comment:Antibodies to HCV no t detected; does not exclude the possibility of exposure to HCV. Blood BLOOD SPECIMEN / Unknown Venipuncture / Unknown 07/15/2018 4:30 PM ADMINISTRATION VICE PRESIDENT 07/15/2018 4:31 PM ADMINISTRATION VICE PRESIDENT us Mikala Chung MD SEND OUTS Final Res ult [facility] 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 Do not delete or resolve the infection flag. 12/14/2020 12/14/2020 Insurance [address] [place] [address] [facility] ATTN: [place] [address] MEDICARE PART A HB [place] [phone] [facility] Member Subscriber Plan / Payer (Ef fective 2024-Present) Name:Dat Suarez Relation to Subscriber:Self Name:Dat Suarez Payer ID:[id number] (NAIC) Group ID:[id number] Type:Not on file Address: MAILSTOP: [id number] [address] [place] [address] [address] [place] [address] [employer] [facility] ATTN: [place] [address] [address] [place] [address] [employer] MEDICARE PPS [address] [place] [address] [facility] Advance Directives Documents on File Type Date Recorded Patient Inspector Bullet Slugs Expl anation Healthcare Directive 11/09/2021 022 Healthcare Directive 11/01/2021 12/18/2021 * Full Code (Latest Code Status on File) Date Activated Date Inactivated Comments 01/06/2025 3:28 PM 01/09/2025 3:13 PM Question Answer Comments Code Status Discussion: Reviewed Preferences * Full Code Date Activated Date Inactivated Comments 01/05/2025 3:52 PM 01/06/2025 2:23 PM Question Answer Comments Code Status Discussion: Reviewed Preferences * Full Code Date Activated Date Inactivated Comments 09/04/2024 8:16 PM 09/06/2024 5:37 PM Question Answer Comments Code Status Discussion: Reviewed Preferences * Full Code Date Activated Date Inactivated Comments 11/28/2023 9:24 AM 12/01/2023 3:35 PM Question Answer Comments Code Status Discussion: Reviewed Preferences * Full Code Date Activated Date Inactivated Comments 11/27/2023 5:23 PM 11/28/2023 9:24 AM Question Answer Comments Code Status Discussion: Unable to Assess Preferences, Provider to review later Care Teams Lumber Inspector Relationship Specialty Start Date End Date Mikala Chung MD [address] [place] [address] PCP - General 11/14/05 Nick Russo MD [address] [place] [address] Neurology 07/11/19 Sissy Lee MD [address] [place] [address] Psychiatry 12/08/20 Dirk De Dios PsyD, SHREYAS [address] [place] [address] Psychology 12/08/20 [facility] [place] [address] [place] [address] 02/18/24 Glenna Carrillo Signal Technician 09/05/24
[2025-01-21] MEDS: CARBIDOPA-LEVODOPA 25-100 TABLET 2 TAB PO (17:04)
[2025-01-21 17:24] LABS: Basophils Percent Auto 0.2 % (0.0-3.0); Eosinophils Percent Auto 0.5 % (0.0-7.0); Hematocrit 42.2 % (37.0-53.0); Hemoglobin* 13.9 gm/dL (13.5-17.5); Immature Granulocytes Pct Auto 0.3 %; Lymphocytes Percent Auto 16.7 % (20-44); Mean Corpuscular HGB Conc 33 gm/dL (32-36); Mean Corpuscular Hemoglobin 32 pg (26-34); Mean Corpuscular Volume 96 fL (80-100); Monocytes Percent Auto 7.8 % (0.0-11.0); Neutrophils Percent Auto 74.5 % (42.0-72.0); Platelet Count* 188 K/uL (140-440); Red Blood Count 4.38 m/uL (4.30-5.90); White Blood Count* 14.71 K/uL (4.50-11.00)
[2025-01-21 17:27] LABS: Slide Review Reflex No
[2025-01-21 17:38] LABS: Chloride* 96 mmol/L (96-114); Potassium* 4.2 mmol/L (3.6-5.1); Sodium* 134 mmol/L (135-149)
[2025-01-21 17:41] LABS: Anion Gap 8 mEq/L (7-15); Blood Urea Nitrogen* 15 mg/dL (7-30); Carbon Dioxide* 30 mmol/L (20-32); Creatinine* 1.2 mg/dL (0.5-1.5); Est. Creatinine Clearance* 52.38; Estimated Glomerular Filt Rate 62 ml/min
[2025-01-21 17:42] LABS: Calcium* 8.8 mg/dL (8.4-10.6); Glucose* 120 mg/dL (60-115)
[2025-01-21 17:52] LABS: NT Pro B Type NatriureticPept* 2230 pg/mL (See Note)
[2025-01-21 17:58] LABS: Troponin I* < 0.01 ng/mL (0.01-0.04)
[2025-01-21 18:10] LABS: Appearance Urine Clear (Clear); Bilirubin Urine 1+ (Negative); Color Urine Orange (Yellow); Glucose Urine Negative (Negative); Ketones Urine 1+ (Negative)
[2025-01-21 18:11] LABS: Blood Urine Negative (Negative); Leukocyte Esterase Urine Negative (Negative); Nitrite Urine Negative (Negative); Protein Urine 1+ (Negative); RBC Urine 0-2 (0-2); Specific Gravity Urine >= 1.030 (1.000-1.030); Urobilinogen Urine 0.2 (0.2-1.0); WBC Urine 0-2 (0-5); pH Urine 5.5 (5.0-8.5)
[2025-01-21 18:12] LABS: Hyaline Casts Urine Many (None-Few)
== END 2025-01-21 19:47 | disposition home or self-care (01) ==
PROVIDERS: Emergency Provider Emergency Medicine; PCP Internal Medicine
DX: R42 Dizziness and giddiness (principal); W19.XXXA Unspecified fall, initial encounter
CPT/HCPCS: 36415; 70450; 71046; 72125; 80048; 81001; 83605; 83880; 84484; 85025; 93005; 99284; 99285; A9270

== ENCOUNTER 2025-03-17 10:04 | Outpatient (CLI) | payer BC, SELFPAY | END 2025-03-17 10:05 | disposition home or self-care (01) | LOC: INJ CL 10:04 | PROVIDERS: PCP Internal Medicine; Visit Provider Family Medicine | DX: M47.816 Spondylosis without myelopathy or radiculopathy, lumbar region (principal) | CPT/HCPCS: 64493; 64494; J0702; Q9966 ==